=== PATIENT | female | born 1940 | race Caucasian/White ===

== ENCOUNTER → 2017-02-15 | Outpatient (CLI) | payer OTHER ==
--- NOTE | 2017-02-15 13:44 | MG ---
HISTORY: 6 month follow up left breast carcinoma status post lumpectomy Left breast digital diagnostic mammography with CAD. Comparison: August 26, 2016 FINDINGS: XCCL,CC and MLO projections of the left breast were obtained. Scattered fibroglandular tissue is se en to be present with normal interval evolution of the patient's postsurgical change. No new or dev eloping suspicious architectural distortion, mass or clustered microcalcifications can be observed t o suggest malignancy. Diffuse skin thickening is again noted likely related to previous surgery and /. No pathological lymphadenopathy can be identified. Benign-appearing calcifications are noted. IMPRESSION: NO RADIOGRAPHIC EVIDENCE OF MALIGNANCY. ACR CATEGORY 2 - benign findings. Return to bilateral mammographic imaging in August 2017. Diagnostic CAD was utilized and reviewed. * 0 (ZERO) - ASSESSMENT INCOMPLETE; ADDITIONAL IMAGING IS NEEDED. * 1/1 (ONE) - NEGATIVE. * 2/II (TWO) - BENIGN FINDINGS. * 3/III (THREE) - PROBABLY BENIGN FINDING; SHORT INTERVAL FOLLOW-UP SUGGESTED. * 4/IV (FOUR) - SUSPICIOUS ABNORMALITY; BIOPSY SHOULD BE CONSIDERED. * 5/V (FIVE) - HIGHLY SUSPICIOUS OF MALIGNANCY; BIOPSY SHOULD BE PERFORMED. A NEGATIVE X-RAY REPORT SHOULD NOT DELAY BIOPSY IF A DOMINANT OR CLINICALLY SUSPICIOUS MASS IS PRESENT; 4 TO 8 PERCENT OF CANCERS ARE NOT IDENTIFIED BY X-RAY. A NEG ATIVE REPORT MAY REINFORCE THE CLINICAL IMPRESSION. ADENOSIS AND DENSE BREASTS MAY OBSCURE AN UNDER LYING NEOPLASM. Reported By:
== END ==
LOC: RAD 12:11
PROVIDERS: ATTEND Surgery
DX: Z85.3 Personal history of malignant neoplasm of breast (principal); Z90.12 Acquired absence of left breast and nipple
CPT/HCPCS: 77065

== ENCOUNTER → 2017-04-13 | Day surgery (SDC) | payer OTHER ==
[~2017-04-13] MED LIST: DIPRIVAN VIAL 20 ML ONE; NS 1000 ML 1,000 ML ONE
--- NOTE | 2017-04-13 09:37 | OR.GENERIC ---
Post-Op Note Generic - Post-Op Note Operative Report: Procedure Note April 13, 2017 Pre-Operative Diagnosis: History of colonic polyps. Post-Operative Diagnosis: 1. Sigmoid diverticulosis. 2. Grade I internal hemorrhoids. 3. Poor prep. Procedure: Colonoscopy to cecum. Surgeon: Hao Pollack MD. Home Day Care Provider: Ananya Zavaleta CRNA. Specimens: None. Estimated blood loss: None. Complications: None. Summary: The patient is a 76 year old female who presented for a screening colonoscopy. The risk and benefits of the procedure including difficulty with anesthesia, bleeding, infection, as well as perforation were discussed with the patient. The patient understood these risks and requested the procedure. On April 13, 2017, the patient was brought to the endoscopy suite. A time out was performed verifying the patient and procedure. The patient was placed in a left lateral decubitus position. After satisfactory induction of monitored anesthesia care, a rectal exam was performed. Small external hemorrhoids were noted. Next, an endoscopy was advanced through the anus and directed to the cecum without difficulty. The scope was then withdrawn viewing all mucosal surfaces. The patients prep was poor. Liquid and solid stool limited visualization. The cecum, ascending, transverse, as well as descending portions of the colon were normal. Specifically, there were no masses, polyps, or diverticula. The scope was withdrawn through the sigmoid portion of the colon. No masses or polyps were seen. However, few diverticula were seen. There was no evidence of diverticulitis. The scope was withdrawn into the rectum and retroflexed. Grade I internal hemorrhoids were noted. The scope was straightened and insufflation evacuated. The scope was withdrawn and the procedure terminated. The patient was taken to the recovery room in stable condition. There were no complications.
[2017-04-13 09:57] VITALS: BP 151/74
== END ==
LOC: SURG1 07:00
PROVIDERS: ATTEND Student in an Organized Health Care Education/Training Program
PROC: 0DJD8ZZ Inspection of Lower Intestinal Tract, Via Natural or Artificial Opening Endoscopic (ICD-10-PCS; principal; 2017-04-13 08:30)
DX: Z12.11 Encounter for screening for malignant neoplasm of colon (principal); Z86.010 Personal history of colon polyps; K57.30 Diverticulosis of large intestine without perforation or abscess without bleeding; K64.0 First degree hemorrhoids
CPT/HCPCS: 99100; A4217; J3490

== ENCOUNTER → 2017-09-01 | Outpatient (CLI) | payer OTHER ==
[2017-04-13 09:57] VITALS: BP 151/74
--- NOTE | 2017-09-01 12:10 | MG ---
HISTORY: Six-month follow-up left breast carcinoma Bilateral digital diagnostic mammography with CAD. Comparison: Multiple previous exams dating back to July 17, 2013 FINDINGS: Bilateral CC and MLO projections of the right and left breast were obtained. Scattered fibroglandula r tissue is seen to be present without suspicious interval change and with stable postsurgical change s on the left. No new or developing architectural distortion, mass or clustered microcalcifications can be observed to suggest malignancy. No skin thickening or nipple retraction is appreciated. No pathological lymphadenopathy can be identified. Benign-appearing calcifications are noted within the right and left breast. IMPRESSION: NO RADIOGRAPHIC EVIDENCE OF MALIGNANCY. ACR CATEGORY 2 - benign findings. FOLLOW-UP EXAM 1 YEAR. Diagnostic CAD was utilized and reviewed. * 0 (ZERO) - ASSESSMENT INCOMPLETE; ADDITIONAL IMAGING IS NEEDED. * 1/1 (ONE) - NEGATIVE. * 2/II (TWO) - BENIGN FINDINGS. * 3/III (THREE) - PROBABLY BENIGN FINDING; SHORT INTERVAL FOLLOW-UP SUGGESTED. * 4/IV (FOUR) - SUSPICIOUS ABNORMALITY; BIOPSY SHOULD BE CONSIDERED. * 5/V - HIGHLY SUSPICIOUS OF MALIGNANCY; BIOPSY SHOULD BE PERFORMED. A NEGATIVE X-RAY REPORT SHOULD NOT DELAY BIOPSY IF A DOMINANT OR CLINICALLY SUSPICIOUS MASS IS PRESENT; 4 TO 8 PERCENT OF CANCERS ARE NOT IDENTIFIED BY X-RAY. A NEGA TIVE REPORT MAY REINFORCE THE CLINICAL IMPRESSION. ADENOSIS AND DENSE BREASTS MAY OBSCURE AN UNDERLY ING NEOPLASM. Reported By:
== END ==
LOC: RAD 11:02
PROVIDERS: ATTEND Nurse Practitioner Family
DX: Z85.3 Personal history of malignant neoplasm of breast (principal)
CPT/HCPCS: 77066

== ENCOUNTER 2020-10-19 16:00 | Inpatient (IN) ==
[2020-10-19 16:10] VITALS: BMI 25.8
--- NOTE | 2020-10-19 16:13 | DR.GENAD ---
HPI Time Seen Time Seen by Provider: 10/19/20 16:12 PCP Primary Care Physician: SARAH DENSON HPI Comment HPI Comment: 79 yo f presents w/ abd pain x 3 days. Gradual onset, dull/ aching, suprapubic area, non radiating, waxing/ waning, no relieving/ provoking factors. Had had 50 lb weight loss over the last year, as well a recurrent episodes of n/ v. Recently underwent egd which demonstrated gastritis. + dysuria. No back or flank pain. Denies melena, hematochezia, hematuria, urinary retention, f/c, CP/ SOB. Complaint/Symptoms Chief Complaint:: PT C/O SHARP STABBING MIDDLE ABDOMINAL PAIN INTERMITTENTLY ASSOCIATED WITH NAUSEA AND VOMITTING X 1 WEEK. PT HAD EGD ON 10/15/[address] BAILEY WHICH SHOWED GASTRITIS. Source History Provided: Patient Mode of Arrival Mode of Arrival: Ambulatory Timing Onset of Chief Complaint: 10/19/20 Came on: Gradually Severity Severity: Moderate PMH PMH Past Medical History: Yes Past Medical History: Arthritis, Diabetes, GERD and Hypertension Past Medical History Comment: BREAST CANCER Past Surgical History: Yes Surgical History: Cholecystectomy and Hysterectomy Past Surgical History Comment: RIGHT BREAST LUMPECTOMY, UMBILICAL HERNIA Family History History of Family Medical Conditions: No Social History Does patient currently use any type of tobacco product: No Have you used tobacco products in the last 12 months: No Type of Tobacco Use: None Does any household member use tobacco: No Alcohol Use: None Do you use any recreational Drugs:: No Lives With: Family Lives Where: Home Infectious screening In the last 2 months have you had wt loss of >10#?: NO Have you had fever, night sweats or hemotysis?: No Have you traveled outside the country in the last 6 months?: No Isolation: Standard ROS Review of Systems Constitutional: No Symptoms Reported Eyes: No Symptoms Reported ENTM: No Symptoms Reported Respiratoy: No Symptoms Reported Cardiovascular: No Symptoms Reported Gastrointestinal/Abdominal: Abdominal Pain, Diarrhea, Nausea and Vomiting; negative Constipation Genitourinary: Dysuria; negative Frequency and Hematuria Neurological: No Symptoms Reported Musculoskeletal: No Symptoms Reported Integumentary: No Symptoms Reported Hematologic/Lymphatic: No Symptoms Reported Endocrine: No Symptoms Reported Psychiatric: No Symptoms Reported All Other Systems: Reviewed and Negative PE Vital Signs Vitals: Temperature 37.2 C Pulse Rate 91 Respiratory Rate 20 Blood Pressure 168/70 O2 Sat by Pulse Oximetry 99 General Limitations: No Limitations General Appearance: Alert and In No Apparent Distress Head Head Exam: Normal Inspection Eyes Eye exam: Normal Appearance ENT ENT Exam: Normal Exam External Ear Exam: Normal External Inspection TM/Canal Exam: Bilateral: Normal Nose Exam: Normal Nose Exam Mouth Exam: Normal Inspection Throat Exam: Normal Inspection Neck Neck Exam: Normal Inspection Chest Chest Inspection: Normal Inspection Respiratory Respiratory Exam: Normal Lung Sounds Bilat Respiratory Exam: Bilateral: Clear to Auscultation Cardiovascular Cardiovascular Exam: Regular Rate and Normal Rhythm Abdominal Exam Abdominal Exam: Normal Bowel Sounds, Soft and Tenderness; negative Distention, Guarding, Rebound and Rigidity Abdominal Tenderness: Suprapubic Extremities Extremities Exam: Normal Inspection Back Back Exam: Normal Inspection Neurologic Neurological Exam: Alert and Oriented X3 Psychiatric Psychiatric Exam: Normal Affect and Normal Mood Skin Skin Exam: Warm, Dry, Intact and Normal Color MDM Additional Information Additional Information Obtained From: Family Differential Diagnosis Differential Diagnosis: uti, gastritis, sbo, gastroenteritis COURSE Treatment Treatment: 79 yo f s/p recent egd thurs presents w/ acute suprapubic area abd pain. Prev hx of lower abd wall hernia. Significant recent chronic hx of weight loss and diarrhea. Lab markers fairly unremarkable. UTI on ua, Rocephin given. CT abd demonstrated large abd wall hernia with inflammatory findings concerning for possible early Bowell ischemia. Lactate < 2. No signs of sepsis at this time. Cecal mass also noted onct with what appear to be liver masses raising con cern for a neoplastic process. Discussed with dr ballesteros whom agrees to consult. Discussed with dr orourke whom agrees to admit. Education/Counseling Education/Counseling: Patient and Family Educated On: Treatment, Diagnosis, Prognosis and Needs for Follow Up ROR Labs Reviewed Laboratory Results Reviewed?: Yes Result Diagrams: 10/19/20 16:24 10/19/20 16:24 Laboratory: WBC 9.5 X10^3/uL (3.6-10.0) 10/19/20 16:24 RBC 4.13 X10^6/uL (3.5-5.4) 10/19/20 16:24 Hgb 12.2 g/dL (12.0-16.0) 10/19/20 16:24 Hct 36.4 % (36.0-47.0) 10/19/20 16:24 MCV 88.1 fL (80.0-100.0) 10/19/20 16:24 MCH 29.4 pg (27.0-34.0) 10/19/20 16:24 MCHC 33.4 g/dL (33.0-35.0) 10/19/20 16:24 RDW 12.3 % (11.6-16.5) 10/19/20 16:24 Plt Count 380 X10^3/uL (150.0-450.0) 10/19/20 16:24 MPV 8.2 fL (7.4-11.0) 10/19/20 16:24 Neut % (Auto) 69.6 % (42.0-75.0) 10/19/20 16:24 Lymph % (Auto) 20.7 % (21.0-51.0) L 10/19/20 16:24 [place] % (Auto) 6.9 % (0.0-13.0) 10/19/20 16:24 Eos % (Auto) 2.0 % (0.9-2.9) 10/19/20 16:24 Baso % (Auto) 0.8 % (0.2-1.0) 10/19/20 16:24 Neut # (Auto) 6.6 x10^3/uL (2.2-4.8) H 10/19/20 16:24 Lymph # (Auto) 2.0 X10^3/uL (1.3-2.9) 10/19/20 16:24 [place] # (Auto) 0.7 x10^3/uL (0.3-0.8) 10/19/20 16:24 Eos # (Auto) 0.2 x10^3/uL (0.0-0.2) 10/19/20 16:24 Baso # (Auto) 0.1 X10^3/uL (0.0-0.1) 10/19/20 16:24 Absolute Nucleated RBC 0.1 /100WBC 10/19/20 16:24 Sodium 134 mmol/L (136-145) L 10/19/20 16:24 Corrected Sodium 135 mmol/L (136-145) L 10/19/20 16:24 Potassium 4.1 mmol/L (3.5-5.1) 10/19/20 16:24 Chloride 95 mmol/L (98-107) L 10/19/20 16:24 Carbon Dioxide 28.1 mmol/L (21-32) 10/19/20 16:24 BUN 25 mg/dL (7-18) H 10/19/20 16:24 Creatinine 1.07 mg/dL (0.55-1.02) H 10/19/20 16:24 Est GFR (MDRD) Af Amer > 60 (>60) 10/19/20 16:24 Est GFR (MDRD) Non-Af 53 (>60) L 10/19/20 16:24 Glucose 162 mg/dL (65-99) H 10/19/20 16:24 Lactic Acid 1.3 mmol/L (0.4-2.0) 10/19/20 16:24 Calcium 9.6 mg/dL (8.5-10.1) 10/19/20 16:24 Corrected Calcium 10.2 mg/dL (8.5-10.1) H 10/19/20 16:24 Total Bilirubin 0.40 mg/dL (0.2-1.0) 10/19/20 16:24 AST 22 Units/L (15-37) 10/19/20 16:24 ALT 22 Units/L (12-78) 10/19/20 16:24 Alkaline Phosphatase 81 Units/L (46-116) 10/19/20 16:24 Troponin I < 0.02 ng/mL (0-1.5) 10/19/20 16:24 Total Protein 8.7 g/dL (6.4-8.2) H 10/19/20 16:24 Albumin 3.2 g/dL (3.4-5.0) L 10/19/20 16:24 Globulin 5.5 g/dL (2.5-4.5) H 10/19/20 16:24 Albumin/Globulin Ratio 0.6 Ratio (1.1-2.1) L 10/19/20 16:24 Lipase 96 Units/L (73-393) 10/19/20 16:24 Specimen Type Clean catch urine 10/19/20 19:40 Urine Color Yellow (YELLOW) 10/19/20 19:40 Urine Appearance Clear (CLEAR) 10/19/20 19:40 Urine pH 7.0 (5.0 - 8.0) 10/19/20 19:40 Ur Specific [place] 1.010 (1.000-1.030) 10/19/20 19:40 Urine Protein 1+ (NEGATIVE) 10/19/20 19:40 Urine Glucose (UA) Negative (NEGATIVE) 10/19/20 19:40 Urine Ketones Negative (NEGATIVE) 10/19/20 19:40 Urine Occult Blood 3+ (NEGATIVE) 10/19/20 19:40 Urine Nitrite Negative (NEGATIVE) 10/19/20 19:40 Urine Bilirubin Negative (NEGATIVE) 10/19/20 19:40 Urine Urobilinogen 2+ (NORMAL) 10/19/20 19:40 Ur Leukocyte Esterase 2+ (NEGATIVE) 10/19/20 19:40 Urine RBC 10-20 /HPF (0-3) A 10/19/20 19:40 Urine WBC 5-10 /HPF (0-5) A 10/19/20 19:40 Ur Squamous Epith Cells Few /HPF (NEGATIVE) 10/19/20 19:40 Urine Bacteria 1+ /HPF (NEGATIVE) 10/19/20 19:40 Ur Culture Indicated? No/not indicated 10/19/20 19:40 SARS CoV-2 RNA Rapid SUSANA Negative (NEGATIVE) 10/19/20 20:30 XRAY XRAY Interpreted by: Radiologist X-ray Results: chest x ray: no acute processes. ct abd/ pelvis: abd wall hernia w/ inflammatory findings early ischemia vs infection, cecal mass, hypoattenuating liver masses. EKG Rate: 96 [place]: Normal Rhythm: NSR Block: None Hypertrophy: None ST: Normal Opioid Opioid Risk Tool Age (Quique box if 16-45): No History of Preadolescent Sexual Abuse: No Total: 0 Total Score Risk Category: Low Risk Copyright: Wilbur VAZQUEZ predicting aberrant behaviors Diagnosis Discharge Problem: Colitis, Abdominal wall hernia, Colonic mass, Lesion of liver UTI (urinary tract infection) Qualifiers: Urinary tract infection type: acute cystitis Hematuria presence: without hematuria Qualified Code(s): N30.00 - Acute cystitis without hematuria Instructions Forms: Patient Portal Social Distancing
[2020-10-19] MEDS ORDERED: NS 1000 ML 1,000 ML IV ONE (16:17)
[2020-10-19] MEDS ORDERED: ZOFRAN INJ 4 MG VIAL IVP ONE (16:17)
[2020-10-19] MEDS ORDERED: NS 1000 ML 1,000 ML ONE ×2 (16:19→20:37)
[2020-10-19] MEDS ORDERED: ZOFRAN INJ 4 MG VIAL ONE (16:19)
[2020-10-19 16:49] LABS: BASOPHILS # (AUTO) 0.1 X10^3/uL (0.0-0.1); BASOPHILS % (AUTO) 0.8 % (0.2-1.0); EOSINOPHILS # (AUTO) 0.2 x10^3/uL (0.0-0.2); HEMATOCRIT 36.4 % (36.0-47.0); HEMOGLOBIN 12.2 g/dL (12.0-16.0); LYMPHOCYTES % (AUTO) 20.7 % (21.0-51.0); MEAN CORPUSCULAR HEMOGLOBIN 29.4 pg (27.0-34.0); MEAN CORPUSCULAR HGB CONC 33.4 g/dL (33.0-35.0); MEAN CORPUSCULAR VOLUME 88.1 fL (80.0-100.0); MEAN PLATELET VOLUME 8.2 fL (7.4-11.0); MONOCYTES # (AUTO) 0.7 x10^3/uL (0.3-0.8); MONOCYTES % (AUTO) 6.9 % (0.0-13.0); NEUTROPHILS # (AUTO) 6.6 x10^3/uL (2.2-4.8); NEUTROPHILS % (AUTO) 69.6 % (42.0-75.0); PLATELET COUNT 380 X10^3/uL (150.0-450.0); RED BLOOD COUNT 4.13 X10^6/uL (3.5-5.4); RED CELL DISTRIBUTION WIDTH 12.3 % (11.6-16.5); WHITE BLOOD COUNT 9.5 X10^3/uL (3.6-10.0)
[2020-10-19 16:55] LABS: LACTIC ACID 1.3 mmol/L (0.4-2.0)
[2020-10-19 16:59] LABS: ALANINE AMINOTRANSFERASE 22 Units/L (12-78); ALBUMIN 3.2 g/dL (3.4-5.0); ALKALINE PHOSPHATASE 81 Units/L (46-116); ASPARTATE AMINO TRANSFERASE 22 Units/L (15-37); BLOOD UREA NITROGEN 25 mg/dL (7-18); CALCIUM 9.6 mg/dL (8.5-10.1); CARBON DIOXIDE 28.1 mmol/L (21-32); CHLORIDE 95 mmol/L (98-107); COR CA(FOR HYPOALB) 10.2 mg/dL (8.5-10.1); COR NA(FOR HYPERGLY) 135 mmol/L (136-145); CREATININE 1.07 mg/dL (0.55-1.02); SODIUM 134 mmol/L (136-145); TOTAL PROTEIN 8.7 g/dL (6.4-8.2); TROPONIN I < 0.02 ng/mL (0-1.5); eGFR NON BLACK RACES 53 (>60)
[2020-10-19] MEDS ORDERED: NS 100 ML IV 100 ML IV ONE (18:31)
--- NOTE | 2020-10-19 19:45 | CT ---
HISTORYABD PAIN S/P EGD ON 10/15/20, GASTRITISSTUDYABDOMEN/PELVIS WITH CONCOMPARISONDecember 2019TECHNIQUEAxial CT images of the abdomen and pelvis were obtained after the administration of IV contrast and reformatted into coronal and sagittal planes for further evaluation. Enteric contrast was also administered.Radiation dose: 612.20 mGy-cm total DLPFINDINGSLung bases are clear.Fat containing supraumbilical midline hernia without inflammatory changes.Stomach appears normal.Low-attenuation heterogeneous foci scattered throughout the liver parenchyma measuring up to 2.7 cm in with on axial image 16.Atherosclerotic changes to the abdominal aorta without aneurysm.Spleen, pancreas and adrenal glands unremarkable.Gallbladder appears normal with no biliary dilatation.10 x 6 mm calculus in the left renal pelvis; not resulting in obstruction.Otherwise, unremarkable appearance of the kidneys and ureters.Unremarkable appearance of the urinary bladder.Status post hysterectomy.Colonic diverticulosis without diverticulitis.Anterior lower abdominal wall hernia containing a loop of mildly distended bowel with mild small bowel wall thickening as well as edema in the socially aided mesentery.Cecal wall thickening at the ileocecal valve; ill-defined.No evidence of acute appendicitis.No pneumoperitoneum.No significant fluid collection.No adenopathy.No acute osseous abnormality.Moderate degenerative disc disease at L2-L3.Otherwise, mild degenerative disc disease in the remainder of the thoracolumbar spine without vertebral body height loss.IMPRESSION1. Lower abdominal wall hernia containing a loop of dilated small bowel. There is small bowel dilatation proceeding the hernia as well as distal to the hernia extending to the ileocecal valve. Small bowel wall thickening involving the bowel loop within the hernia as well as the intra-abdominal portion to the ileocecal valve. Edema in the mesentery leading to the small bowel with the wall thickening. Findings could represent infectious, inflammatory or ischemic enteritis.2. Additionally, there is ill-defined thickening of the cecal wall which is concerning for a malignancy given the numerous low-attenuation foci in the liver that are most consistent with metastatic disease.3. Colonic diverticulosis without diverticulitis.4. 10 x 6 mm calculus in the left renal pelvis not resulting in obstruction.5. Fat containing midline supraumbilical hernia without inflammatory changes.Electronically signed by: Jim Motta (Oct 19, 2020 19:43:47)
[2020-10-19 19:49] LABS: BILIRUBIN,URINE NEGATIVE (NEGATIVE); BLOOD/HEMOGLOBIN,URINE 3+ (NEGATIVE); GLUCOSE, URINE NEGATIVE (NEGATIVE); KETONES,URINE NEGATIVE (NEGATIVE); LEUKOCYTE ESTERASE ,URINE 2+ (NEGATIVE); NITRITES,URINE NEGATIVE (NEGATIVE); PROTEIN,URINE 1+ (NEGATIVE); UROBILINOGEN,URINE 2+ (NORMAL)
[2020-10-19 19:50] LABS: APPEARANCE,URINE CLEAR (CLEAR); COLOR,URINE YELLOW (YELLOW)
[2020-10-19 19:57] LABS: BACTERIA,URINE 1+ /HPF (NEGATIVE); SQUAMOUS EPITHELIAL CELL,UR FEW /HPF (NEGATIVE)
--- NOTE | 2020-10-19 20:02 | RAD ---
PROCEDURE: Chest X-ray 1 View .HISTORY: Abdomen pain with nausea and vomiting for 1 week.TECHNIQUE: AP portable view done at 4:19 p.m..COMPARISON: 07/17/2020.TECHNICAL QUALITY: Satisfactory .FINDINGS:Normal size heart .Mediastinum and hilar regions show no masses or lymphadenopathy .Normal central vascularity .No pulmonary consolidation, masses, pleural fluid, or pneumothorax .No acute bony abnormality .Metallic band projected over the lower neck in the midline suspected to be outside the patient.IMPRESSION:No active cardiopulmonary disease .Electronically signed by: Bright Huitron (Oct 19, 2020 20:01:08)
[2020-10-19] MEDS ORDERED: ROCEPHIN 1 GRAM IV PREMIX 1 G/50 ML IV.SOLN. IV ONE ×2 (20:31→20:36)
[2020-10-19] MEDS: ROCEPHIN 1 GRAM IV PREMIX 1 G/50 ML IV.SOLN. IV SCH (21:07)
[2020-10-19] MEDS: D5 LR 1000 ML 1,000 ML IV SCH (22:06)
[2020-10-19] MEDS: RESTORIL CAP 15 MG PO PRN (23:44)
[2020-10-20] MEDS: D5 LR 1000 ML 1,000 ML IV SCH ×3 (05:30→22:52)
[2020-10-20 06:19] LABS: BASOPHILS % (AUTO) 0.6 % (0.2-1.0); EOSINOPHILS # (AUTO) 0.2 x10^3/uL (0.0-0.2); EOSINOPHILS % (AUTO) 2.9 % (0.9-2.9); HEMATOCRIT 30.1 % (36.0-47.0); HEMOGLOBIN 10.2 g/dL (12.0-16.0); LYMPHOCYTES # (AUTO) 2.4 X10^3/uL (1.3-2.9); LYMPHOCYTES % (AUTO) 32.8 % (21.0-51.0); MEAN CORPUSCULAR HEMOGLOBIN 29.6 pg (27.0-34.0); MEAN CORPUSCULAR HGB CONC 33.9 g/dL (33.0-35.0); MEAN CORPUSCULAR VOLUME 87.3 fL (80.0-100.0); MEAN PLATELET VOLUME 7.7 fL (7.4-11.0); MONOCYTES # (AUTO) 0.6 x10^3/uL (0.3-0.8); MONOCYTES % (AUTO) 7.7 % (0.0-13.0); NEUTROPHILS # (AUTO) 4.1 x10^3/uL (2.2-4.8); PLATELET COUNT 337 X10^3/uL (150.0-450.0); RED BLOOD COUNT 3.45 X10^6/uL (3.5-5.4); RED CELL DISTRIBUTION WIDTH 12.2 % (11.6-16.5); WHITE BLOOD COUNT 7.4 X10^3/uL (3.6-10.0)
[2020-10-20 06:35] LABS: ALANINE AMINOTRANSFERASE 18 Units/L (12-78); ALBUMIN 2.5 g/dL (3.4-5.0); ALKALINE PHOSPHATASE 67 Units/L (46-116); ASPARTATE AMINO TRANSFERASE 17 Units/L (15-37); BLOOD UREA NITROGEN 17 mg/dL (7-18); CALCIUM 8.7 mg/dL (8.5-10.1); CARBON DIOXIDE 29.2 mmol/L (21-32); CHLORIDE 100 mmol/L (98-107); COR CA(FOR HYPOALB) 9.9 mg/dL (8.5-10.1); COR NA(FOR HYPERGLY) 138 mmol/L (136-145); CREATININE 0.94 mg/dL (0.55-1.02); SODIUM 137 mmol/L (136-145); eGFR NON BLACK RACES > 60 (>60)
--- NOTE | 2020-10-20 08:40 | DR.PROGNOT ---
Hospital Progress Notes - Progress Note for Day of: Progress Note Date: 10/20/20 - Chief Complaint Chief Complaint: noderate RLQ pain . no nausea or vomiting . Hgb 10.2. LFT normal .. BS 145. - Past Medical Family Social History Past Med/Fam/Surg Hx: No changes since H&P Allergies: Allergies No Known Drug Allergies Allergy (Verified 04/13/17 07:10) - Review Of Systems ROS: No change since H&P - Vital Signs Vital Signs: Temperature 97.6 F Pulse Rate [Left Radial] 73 Pulse Rate 91 Respiratory Rate 18 Blood Pressure [Left Arm] 159/69 Blood Pressure 168/70 O2 Sat by Pulse Oximetry 99 - Physical Exam Oriented: Normal Eyes: Normal Ear: Normal Nose: Normal Respiratory: Normal Cardiovascular: Normal : Normal GI:Auscultation: Normal GI:Palpation: Other (incarcerated incisional hernia RLQ ( from previous hysterectomy incision )) GI: Tenderness: RLQ (soft , flat abdomen with recurrent umbilical hernia ( fat containing ) and incarcerated RLQ hernia ) Speech Pattern: Clear, Appropriate - Laboratory and Diagnostics Result Diagrams: 10/20/20 06:07 10/20/20 06:07 Labs: Laboratory WBC 7.4 X10^3/uL (3.6-10.0) 10/20/20 06:07 RBC 3.45 X10^6/uL (3.5-5.4) L 10/20/20 06:07 Hgb 10.2 g/dL (12.0-16.0) L D 10/20/20 06:07 Hct 30.1 % (36.0-47.0) L 10/20/20 06:07 MCV 87.3 fL (80.0-100.0) 10/20/20 06:07 MCH 29.6 pg (27.0-34.0) 10/20/20 06:07 MCHC 33.9 g/dL (33.0-35.0) 10/20/20 06:07 RDW 12.2 % (11.6-16.5) 10/20/20 06:07 Plt Count 337 X10^3/uL (150.0-450.0) 10/20/20 06:07 MPV 7.7 fL (7.4-11.0) 10/20/20 06:07 Neut % (Auto) 56.0 % (42.0-75.0) 10/20/20 06:07 Lymph % (Auto) 32.8 % (21.0-51.0) 10/20/20 06:07 [place] % (Auto) 7.7 % (0.0-13.0) 10/20/20 06:07 Eos % (Auto) 2.9 % (0.9-2.9) 10/20/20 06:07 Baso % (Auto) 0.6 % (0.2-1.0) 10/20/20 06:07 Neut # (Auto) 4.1 x10^3/uL (2.2-4.8) 10/20/20 06:07 Lymph # (Auto) 2.4 X10^3/uL (1.3-2.9) 10/20/20 06:07 [place] # (Auto) 0.6 x10^3/uL (0.3-0.8) 10/20/20 06:07 Eos # (Auto) 0.2 x10^3/uL (0.0-0.2) 10/20/20 06:07 Baso # (Auto) 0.0 X10^3/uL (0.0-0.1) 10/20/20 06:07 Absolute Nucleated RBC 0.1 /100WBC 10/20/20 06:07 Sodium 137 mmol/L (136-145) 10/20/20 06:07 Corrected Sodium 138 mmol/L (136-145) 10/20/20 06:07 Potassium 4.0 mmol/L (3.5-5.1) 10/20/20 06:07 Chloride 100 mmol/L (98-107) 10/20/20 06:07 Carbon Dioxide 29.2 mmol/L (21-32) 10/20/20 06:07 BUN 17 mg/dL (7-18) 10/20/20 06:07 Creatinine 0.94 mg/dL (0.55-1.02) 10/20/20 06:07 Est GFR (MDRD) Af Amer > 60 (>60) 10/20/20 06:07 Est GFR (MDRD) Non-Af > 60 (>60) 10/20/20 06:07 Glucose 145 mg/dL (65-99) H 10/20/20 06:07 POC Glucose (mg/dL) 147 mg/dL (65-99) H 10/20/20 05:10 Lactic Acid 1.3 mmol/L (0.4-2.0) 10/19/20 16:24 Calcium 8.7 mg/dL (8.5-10.1) 10/20/20 06:07 Corrected Calcium 9.9 mg/dL (8.5-10.1) 10/20/20 06:07 Total Bilirubin 0.30 mg/dL (0.2-1.0) 10/20/20 06:07 AST 17 Units/L (15-37) 10/20/20 06:07 ALT 18 Units/L (12-78) 10/20/20 06:07 Alkaline Phosphatase 67 Units/L (46-116) 10/20/20 06:07 Troponin I < 0.02 ng/mL (0-1.5) 10/19/20 16:24 Total Protein 7.0 g/dL (6.4-8.2) 10/20/20 06:07 Albumin 2.5 g/dL (3.4-5.0) L 10/20/20 06:07 Globulin 4.5 g/dL (2.5-4.5) 10/20/20 06:07 Albumin/Globulin Ratio 0.6 Ratio (1.1-2.1) L 10/20/20 06:07 Lipase 96 Units/L (73-393) 10/19/20 16:24 Specimen Type Clean catch urine 10/19/20 19:40 Urine Color Yellow (YELLOW) 10/19/20 19:40 Urine Appearance Clear (CLEAR) 10/19/20 19:40 Urine pH 7.0 (5.0 - 8.0) 10/19/20 19:40 Ur Specific [place] 1.010 (1.000-1.030) 10/19/20 19:40 Urine Protein 1+ (NEGATIVE) 10/19/20 19:40 Urine Glucose (UA) Negative (NEGATIVE) 10/19/20 19:40 Urine Ketones Negative (NEGATIVE) 10/19/20 19:40 Urine Occult Blood 3+ (NEGATIVE) 10/19/20 19:40 Urine Nitrite Negative (NEGATIVE) 10/19/20 19:40 Urine Bilirubin Negative (NEGATIVE) 10/19/20 19:40 Urine Urobilinogen 2+ (NORMAL) 10/19/20 19:40 Ur Leukocyte Esterase 2+ (NEGATIVE) 10/19/20 19:40 Urine RBC 10-20 /HPF (0-3) A 10/19/20 19:40 Urine WBC 5-10 /HPF (0-5) A 10/19/20 19:40 Ur Squamous Epith Cells Few /HPF (NEGATIVE) 10/19/20 19:40 Urine Bacteria 1+ /HPF (NEGATIVE) 10/19/20 19:40 Ur Culture Indicated? No/not indicated 10/19/20 19:40 SARS CoV-2 RNA Rapid SUSANA Negative (NEGATIVE) 10/19/20 20:30 - Assessment and Plan 1: incarcerated incisional hernia RLQ ( partial SBO ) . recurrent umbilical hernia ( fat containing ). possible liver mets ( cecal abnormality and h/o breast ca ) . to repeat abdominal xray , CEA . may have clear liquid . - Problem Patient Problems: Patient Problems Colitis (Acute) K52.9 Abdominal wall hernia (Acute) K43.9 UTI (urinary tract infection) (Acute) N39.0 Colonic mass (Acute) K63.89 Lesion of liver (Acute) K76.9
[2020-10-20] MEDS: ROCEPHIN 1 GRAM IV PREMIX 1 G/50 ML IV.SOLN. IV SCH (09:03)
--- NOTE | 2020-10-20 10:38 | RAD ---
HISTORYBOWEL OBSTRUCTION HTN, BREAST CA, THYROID, HYSTER, HERNIA, LT BREAST LUMPECTOMYSTUDYKUBCOMPARISON: ABDOMINAL CT DONE OCTOBER 19, 2020.FINDINGSThe rectum is obscured by urinary contrast. There is a moderate amount of retained contrast within the nondilated large bowel. Multiple diverticuli are present.IMPRESSIONNo evidence of obstruction with diverticulosis. Rectum is obscured by urinary contrast.Electronically signed by: SHWETA JOHNSON (Oct 20, 2020 10:37:45)
--- NOTE | 2020-10-20 13:34 | DR.H&P ---
H&P - History & Physical for Day of: H&P Date: 10/19/20 - Chief Complaint Chief Complaint: ABDOMINAL PAIN, N/V - History of Present Illness History of Present Illness: 79 yo f presents w/ abd pain x 3 days. Gradual onset, dull/ aching, suprapubic area, non radiating, waxing/ waning, no relieving/ provoking factors. Had had 50 lb weight loss over the last year, as well a recurrent episodes of n/v. Recently underwent egd which demonstrated g astritis. + dysuria. No back or flank pain. Pt had lap laura in July. Pt denies any fever, ccc or known covid exposure - Past Medical History Past Medical History: Hypertension, Diabetes, GERD, Arthritis - Past Surgical History Surgical History: Cholecystectomy, Hysterectomy, Other - Social History Does patient currently use any type of tobacco product: No Have you used tobacco products in the last 12 months: No Type of Tobacco Use: None Does any household member use tobacco: No Alcohol Use: None Drug Use: None - Medications Home Medications: No Known Drug Allergies Allergy (Verified 04/13/17 07:10) - Review of Systems Constitutional: Weakness Eyes: No Symptoms Reported ENT: No Symptoms Reported Respiratory: No Symptoms Reported Cardiovascular: No Symptoms Reported Gastrointestinal: Nausea, Vomiting, Abdominal Pain, Diarrhea Genitourinary: No Symptoms Reported Musculoskeletal: No Symptoms Reported Neurological: Weakness - Physical Exam Vital Signs: Temperature 97.7 F Pulse Rate [Left Radial] 71 Pulse Rate 91 Respiratory Rate 18 Blood Pressure [Left Arm] 149/93 Blood Pressure 168/70 O2 Sat by Pulse Oximetry 98 Oriented: Normal Eyes: Normal Ear: Normal Nose: Normal Throat: Dry Respiratory: RLL Diminished, LLL Diminished Cardiovascular: Normal : Normal Auscultation: Bowel Sounds: Normal Palpation: Other (umbilical hernia, reducible and incisional hernia rlq) Skin: Decreased [place] Musculoskeletal: Normal Psychiatric: Normal Mood Description: Calm Speech Pattern: Clear, Appropriate - Assessment/Plan (1) Abdominal wall hernia Status: Acute Plan: NPO, SURGICAL CONSULT, GENTLE IV HYDRATION. I&OS, BP CONTROL. COVID - ON ADMISSION. PAIN AND NAUSEA CONTROL. VERIFY HOME MEDICATION, ROUTINE EKG (2) Unexplained weight loss Status: Acute (3) UTI (urinary tract infection) Qualifiers: Urinary tract infection type: acute cystitis Hematuria presence: without hematuria Qualified Code(s): N30.00 - Acute cystitis without hematuria Status: Acute (4) Colonic mass Status: Acute (5) Lesion of liver Status: Acute - Allergies Allergies/Adverse Reactions: Allergies Allergy/AdvReac Type Severity Reaction Status Date / Time No Known Drug Allergies Allergy Verified 04/13/17 07:10
[2020-10-20] MEDS: LOVENOX INJ 40 MG SYR SC SCH (15:54)
[2020-10-20] MEDS: RESTORIL CAP 15 MG PO PRN (20:43)
[2020-10-20] MEDS: PROTONIX INJ 40 MG VIAL IVP SCH (20:43)
[2020-10-20 21:43] LABS: CRYPTOSPORIDIUM PARVUM ANTIGEN NEGATIVE (NEGATIVE); GIARDIA LAMBLIA ANTIGEN NEGATIVE (NEGATIVE)
[2020-10-21] MEDS: D5 LR 1000 ML 1,000 ML IV SCH ×4 (06:35→20:59)
[2020-10-21] MEDS ORDERED: NS 100 ML IV 100 ML IV ONE (09:28)
[2020-10-21] MEDS: PROTONIX INJ 40 MG VIAL IVP SCH ×2 (09:41→20:59)
[2020-10-21] MEDS: ROCEPHIN 1 GRAM IV PREMIX 1 G/50 ML IV.SOLN. IV SCH (09:41)
[2020-10-21] MEDS: LOVENOX INJ 40 MG SYR SC SCH (09:42)
[2020-10-21 09:57] LABS: BASOPHILS % (AUTO) 0.7 % (0.2-1.0); EOSINOPHILS # (AUTO) 0.3 x10^3/uL (0.0-0.2); EOSINOPHILS % (AUTO) 4.2 % (0.9-2.9); HEMATOCRIT 30.6 % (36.0-47.0); HEMOGLOBIN 10.4 g/dL (12.0-16.0); LYMPHOCYTES # (AUTO) 1.8 X10^3/uL (1.3-2.9); LYMPHOCYTES % (AUTO) 25.4 % (21.0-51.0); MEAN CORPUSCULAR HEMOGLOBIN 29.9 pg (27.0-34.0); MEAN CORPUSCULAR HGB CONC 33.9 g/dL (33.0-35.0); MEAN CORPUSCULAR VOLUME 88.2 fL (80.0-100.0); MEAN PLATELET VOLUME 7.8 fL (7.4-11.0); MONOCYTES # (AUTO) 0.5 x10^3/uL (0.3-0.8); MONOCYTES % (AUTO) 7.8 % (0.0-13.0); NEUTROPHILS # (AUTO) 4.3 x10^3/uL (2.2-4.8); NEUTROPHILS % (AUTO) 61.9 % (42.0-75.0); PLATELET COUNT 340 X10^3/uL (150.0-450.0); RED BLOOD COUNT 3.48 X10^6/uL (3.5-5.4); RED CELL DISTRIBUTION WIDTH 12.1 % (11.6-16.5)
[2020-10-21 10:08] LABS: ALANINE AMINOTRANSFERASE 18 Units/L (12-78); ALBUMIN 2.7 g/dL (3.4-5.0); ALKALINE PHOSPHATASE 68 Units/L (46-116); ASPARTATE AMINO TRANSFERASE 17 Units/L (15-37); BLOOD UREA NITROGEN 8 mg/dL (7-18); CALCIUM 8.9 mg/dL (8.5-10.1); CARBON DIOXIDE 32.4 mmol/L (21-32); CHLORIDE 100 mmol/L (98-107); COR CA(FOR HYPOALB) 9.9 mg/dL (8.5-10.1); COR NA(FOR HYPERGLY) 139 mmol/L (136-145); CREATININE 0.82 mg/dL (0.55-1.02); SODIUM 138 mmol/L (136-145); TOTAL PROTEIN 7.3 g/dL (6.4-8.2); eGFR NON BLACK RACES > 60 (>60)
[2020-10-21 10:12] LABS: LACTIC ACID 1.4 mmol/L (0.4-2.0)
--- NOTE | 2020-10-21 10:21 | CT ---
HISTORYBreast cancer with right lumpectomySTUDYCT chest with IV contrastCOMPARISONChest x-ray 10/19/2020TECHNIQUEMultiple axial images of the chest were obtained from the thoracic inlet to the upper abdomenwith the administration of IV contrast. 75 cc Omnipaque 350 IV contrast. Sagittal and coronal reformations are performed. Dose reduction techniques including Automated Exposure Control (AEC) and adjustment of mA and kV were utilized.FINDINGSLungs appear clear. No pneumothorax or pleural effusion. Left lobe of the thyroid gland is enlarged and both lobes have heterogeneous nodules. Thyroid malignancy is not excluded. Correlation with thyroid ultrasound is recommended. There are multiple small mediastinal lymph nodes. These measure less than 1.0 cm in the short axis.The heart and thoracic aorta are normal in size. Liver lesions are seen as described on recent CT abdomen and pelvis report. Nonobstructing stone is seen in the left renal pelvis. Probable benign left renal cyst is seen. No axillary lymphadenopathy is seen. Tiny amount of venous air is seen associated with IV contrast injection.IMPRESSIONEnlarged thyroid gland with nodules is concerning for possible thyroid malignancy. Correlation with ultrasound is recommended.Multiple small mediastinal lymph nodes are seen without evidence of pathologically enlarged lymph node.Electronically signed by: Hesham Palafox (Oct 21, 2020 10:18:58)
[2020-10-21] MEDS ORDERED: COLACE CAP 100 MG PO ONE (12:00)
[2020-10-21] MEDS ORDERED: MIRALAX POWDER (255 GRAMS BTL) PO ONE (14:25)
[2020-10-21] MEDS ORDERED: DULCOLAX TAB EC 5 MG PO ONE (14:25)
[2020-10-21] MEDS: MIRALAX POWDER (255 GRAMS BTL) PO SCH (14:27)
[2020-10-21] MEDS: DULCOLAX TAB EC 5 MG PO SCH ×3 (14:28→20:59)
[2020-10-21 15:28] LABS: FREE T4 (FREE THYROXINE) 1.3 ng/dL (0.76-1.46); TSH (3RD GENERATION) 1.374 uIU/mL (0.358-3.74)
--- NOTE | 2020-10-21 16:24 | DR.PROGNOT ---
Hospital Progress Notes - Progress Note for Day of: Progress Note Date: 10/21/20 - Chief Complaint Chief Complaint: noderate RLQ pain . no nausea or vomiting . abdominal Xray : no bowel obstruction . Hgb 10.2. LFT normal .. BS 145. temp 89.3 - Past Medical Family Social History Past Med/Fam/Surg Hx: No changes since H&P Allergies: Allergies No Known Drug Allergies Allergy (Verified 04/13/17 07:10) - Review Of Systems ROS: No change since H&P - Vital Signs Vital Signs: Temperature 98.0 F Pulse Rate [Left Radial] 76 Pulse Rate 91 Respiratory Rate 20 Blood Pressure [Left Arm] 148/66 Blood Pressure 168/70 O2 Sat by Pulse Oximetry 99 - Physical Exam Oriented: Normal Eyes: Normal Ear: Normal Nose: Normal Throat: Dry Respiratory: Normal Cardiovascular: Normal : Normal GI:Auscultation: Normal GI:Palpation: Other (soft fat containing umbilical hernia .. RLQ incarcerated incisional hernia without obstruction .. BS+) GI: Tenderness: RLQ (soft , flat abdomen with recurrent umbilical hernia ( fat containing ) and incarcerated RLQ hernia ) Skin: Decreased [place] Musculoskeletal: Normal Psychiatric: Normal Mood Description: Calm Speech Pattern: Clear, Appropriate - Laboratory and Diagnostics Result Diagrams: 10/21/20 09:42 10/21/20 09:42 Labs: 10/20/20 19:58 Stool - Final Laboratory WBC 7.0 X10^3/uL (3.6-10.0) 10/21/20 09:42 RBC 3.48 X10^6/uL (3.5-5.4) L 10/21/20 09:42 Hgb 10.4 g/dL (12.0-16.0) L 10/21/20 09:42 Hct 30.6 % (36.0-47.0) L 10/21/20 09:42 MCV 88.2 fL (80.0-100.0) 10/21/20 09:42 MCH 29.9 pg (27.0-34.0) 10/21/20 09:42 MCHC 33.9 g/dL (33.0-35.0) 10/21/20 09:42 RDW 12.1 % (11.6-16.5) 10/21/20 09:42 Plt Count 340 X10^3/uL (150.0-450.0) 10/21/20 09:42 MPV 7.8 fL (7.4-11.0) 10/21/20 09:42 Neut % (Auto) 61.9 % (42.0-75.0) 10/21/20 09:42 Lymph % (Auto) 25.4 % (21.0-51.0) 10/21/20 09:42 [place] % (Auto) 7.8 % (0.0-13.0) 10/21/20 09:42 Eos % (Auto) 4.2 % (0.9-2.9) H 10/21/20 09:42 Baso % (Auto) 0.7 % (0.2-1.0) 10/21/20 09:42 Neut # (Auto) 4.3 x10^3/uL (2.2-4.8) 10/21/20 09:42 Lymph # (Auto) 1.8 X10^3/uL (1.3-2.9) 10/21/20 09:42 [place] # (Auto) 0.5 x10^3/uL (0.3-0.8) 10/21/20 09:42 Eos # (Auto) 0.3 x10^3/uL (0.0-0.2) H 10/21/20 09:42 Baso # (Auto) 0.0 X10^3/uL (0.0-0.1) 10/21/20 09:42 Absolute Nucleated RBC 0.1 /100WBC 10/21/20 09:42 Sodium 138 mmol/L (136-145) 10/21/20 09:42 Corrected Sodium 139 mmol/L (136-145) 10/21/20 09:42 Potassium 3.9 mmol/L (3.5-5.1) 10/21/20 09:42 Chloride 100 mmol/L (98-107) 10/21/20 09:42 Carbon Dioxide 32.4 mmol/L (21-32) H 10/21/20 09:42 BUN 8 mg/dL (7-18) 10/21/20 09:42 Creatinine 0.82 mg/dL (0.55-1.02) 10/21/20 09:42 Est GFR (MDRD) Af Amer > 60 (>60) 10/21/20 09:42 Est GFR (MDRD) Non-Af > 60 (>60) 10/21/20 09:42 Glucose 123 mg/dL (65-99) H 10/21/20 09:42 POC Glucose (mg/dL) 134 mg/dL (65-99) H 10/21/20 15:52 Hemoglobin A1c 6.6 % 10/20/20 06:07 Lactic Acid 1.4 mmol/L (0.4-2.0) 10/21/20 09:42 Calcium 8.9 mg/dL (8.5-10.1) 10/21/20 09:42 Corrected Calcium 9.9 mg/dL (8.5-10.1) 10/21/20 09:42 Total Bilirubin 0.20 mg/dL (0.2-1.0) 10/21/20 09:42 AST 17 Units/L (15-37) 10/21/20 09:42 ALT 18 Units/L (12-78) 10/21/20 09:42 Alkaline Phosphatase 68 Units/L (46-116) 10/21/20 09:42 Troponin I < 0.02 ng/mL (0-1.5) 10/19/20 16:24 Total Protein 7.3 g/dL (6.4-8.2) 10/21/20 09:42 Albumin 2.7 g/dL (3.4-5.0) L 10/21/20 09:42 Globulin 4.6 g/dL (2.5-4.5) H 10/21/20 09:42 Albumin/Globulin Ratio 0.6 Ratio (1.1-2.1) L 10/21/20 09:42 Lipase 96 Units/L (73-393) 10/19/20 16:24 Free T4 1.30 ng/dL (0.76-1.46) 10/21/20 09:42 TSH 3rd Generation 1.374 uIU/mL (0.358-3.74) 10/21/20 09:42 Specimen Type Clean catch urine 10/19/20 19:40 Urine Color Yellow (YELLOW) 10/19/20 19:40 Urine Appearance Clear (CLEAR) 10/19/20 19:40 Urine pH 7.0 (5.0 - 8.0) 10/19/20 19:40 Ur Specific [place] 1.010 (1.000-1.030) 10/19/20 19:40 Urine Protein 1+ (NEGATIVE) 10/19/20 19:40 Urine Glucose (UA) Negative (NEGATIVE) 10/19/20 19:40 Urine Ketones Negative (NEGATIVE) 10/19/20 19:40 Urine Occult Blood 3+ (NEGATIVE) 10/19/20 19:40 Urine Nitrite Negative (NEGATIVE) 10/19/20 19:40 Urine Bilirubin Negative (NEGATIVE) 10/19/20 19:40 Urine Urobilinogen 2+ (NORMAL) 10/19/20 19:40 Ur Leukocyte Esterase 2+ (NEGATIVE) 10/19/20 19:40 Urine RBC 10-20 /HPF (0-3) A 10/19/20 19:40 Urine WBC 5-10 /HPF (0-5) A 10/19/20 19:40 Ur Squamous Epith Cells Few /HPF (NEGATIVE) 10/19/20 19:40 Urine Bacteria 1+ /HPF (NEGATIVE) 10/19/20 19:40 Ur Culture Indicated? No/not indicated 10/19/20 19:40 Stool Description 50 grs brown loose 10/20/20 19:58 Stool Description 50g brown loose 10/20/20 19:58 Stl Occult Blood (IFOB) Positive (NEGATIVE) A 10/20/20 19:58 Stl C. diff Tox B Gene Negative (NEGATIVE) 10/20/20 19:58 Stl C. diff [id number] Presumptive negative (NEGATIVE) 10/20/20 19:58 Stool H. pylori Ag Positive (NEGATIVE) A 10/20/20 19:58 Cryptosporid parvum Ag Negative (NEGATIVE) 10/20/20 19:58 Giardia lamblia Ag Negative (NEGATIVE) 10/20/20 19:58 SARS CoV-2 RNA Rapid SUSANA Negative (NEGATIVE) 10/19/20 20:30 - Assessment and Plan 1: incarcerated incisional hernia RLQ (small bowel loobs ) . recurrent umbilical hernia ( fat containing ). possible liver mets ( cecal abnormality and h/o breast ca ) . for colonscopy in am . - Problem Patient Problems: Patient Problems Colitis (Acute) K52.9 Abdominal wall hernia (Acute) K43.9 UTI (urinary tract infection) (Acute) N39.0 Colonic mass (Acute) K63.89 Lesion of liver (Acute) K76.9 Unexplained weight loss (Acute) R63.4
--- NOTE | 2020-10-21 16:29 | US ---
HISTORYTHYROID MASSSTUDYTHYROID ultrasoundCOMPARISONNoneTECHNIQUEMultiple grayscale and color-flow Doppler images of the thyroid were obtained.FINDINGSRight lobe of the thyroid gland measures 4.3 x 1.9 x 2.2 cm. Left lobe measures 5.2 x 3.1 x 4.9 cm. Thyroid gland is heterogeneous. Complex nodule with solid and cystic components in t he mid right lobe measures 2.3 x 1.1 x 1.5 cm. It has TI rads level 2. Another complex 6 mm cyst is s een in the inferior right lobe.In the left lobe there is a large 1.7 x 1.6 x 1.6 cm solid nodule with out calcifications. It is TI rads level 4 and should be further evaluated with FNA.IMPRESSIONBilatera l thyroid nodules. Complex nodule in the right lobe only has TI rads level 2 and is probably benign.H owever, the 1.7 cm nodule in the left lobe has TI rads level 4 and should be further evaluated with F NA.Electronically signed by: Hesham Palafox (Oct 21, 2020 16:27:27)
[2020-10-21] MEDS ORDERED: FLAGYL IV PREMIX 500 MG BAG 500 MG/100 ML BAG IV ONE (17:07)
[2020-10-21] MEDS: FLAGYL IV PREMIX 500 MG BAG 500 MG/100 ML BAG IV SCH ×2 (17:08→21:00)
[2020-10-21] MEDS: AMOXIL CAP 500 MG PO SCH (20:58)
[2020-10-22] MEDS: D5 LR 1000 ML 1,000 ML IV SCH ×4 (02:35→20:40)
[2020-10-22] MEDS: FLAGYL IV PREMIX 500 MG BAG 500 MG/100 ML BAG IV SCH ×2 (02:35→08:33)
[2020-10-22] MEDS ORDERED: DIPRIVAN VIAL 20 ML ONE ×2 (07:19→07:50)
[2020-10-22] MEDS ORDERED: XYLOCAINE 2 % (PLAIN) ONE (07:19)
[2020-10-22] MEDS ORDERED: NS 1000 ML 1,000 ML ONE (07:23)
--- NOTE | 2020-10-22 08:03 | OR.IMMED ---
Immediate Post-Op Note - Immediate Post-Op Note Pre-Op Diagnosis: mass of the cecum. Post-Op Diagnosis: cecal mass , friable and lobulated . Procedure: colonoscopy to cecum with Bx Surgeon/Communication Specialist: Yosi Specimens Removed: Bxs of cecal mass. Drains: NONE Complications: no Condition: Stable (on clear liquid)
[2020-10-22 08:09] LABS: BASOPHILS # (AUTO) 0.1 X10^3/uL (0.0-0.1); EOSINOPHILS # (AUTO) 0.3 x10^3/uL (0.0-0.2); EOSINOPHILS % (AUTO) 3.4 % (0.9-2.9); HEMATOCRIT 30.7 % (36.0-47.0); HEMOGLOBIN 10.1 g/dL (12.0-16.0); LYMPHOCYTES # (AUTO) 2.1 X10^3/uL (1.3-2.9); MEAN CORPUSCULAR HGB CONC 32.7 g/dL (33.0-35.0); MEAN CORPUSCULAR VOLUME 88.7 fL (80.0-100.0); MEAN PLATELET VOLUME 8.7 fL (7.4-11.0); MONOCYTES # (AUTO) 0.4 x10^3/uL (0.3-0.8); MONOCYTES % (AUTO) 5.5 % (0.0-13.0); NEUTROPHILS # (AUTO) 5.2 x10^3/uL (2.2-4.8); NEUTROPHILS % (AUTO) 64.1 % (42.0-75.0); PLATELET COUNT 326 X10^3/uL (150.0-450.0); RED BLOOD COUNT 3.46 X10^6/uL (3.5-5.4); RED CELL DISTRIBUTION WIDTH 12.1 % (11.6-16.5); WHITE BLOOD COUNT 8.1 X10^3/uL (3.6-10.0)
[2020-10-22 08:25] LABS: ALANINE AMINOTRANSFERASE 17 Units/L (12-78); ALBUMIN 2.6 g/dL (3.4-5.0); ALKALINE PHOSPHATASE 66 Units/L (46-116); ASPARTATE AMINO TRANSFERASE 13 Units/L (15-37); BLOOD UREA NITROGEN 4 mg/dL (7-18); CALCIUM 8.4 mg/dL (8.5-10.1); CHLORIDE 103 mmol/L (98-107); COR CA(FOR HYPOALB) 9.5 mg/dL (8.5-10.1); COR NA(FOR HYPERGLY) 140 mmol/L (136-145); CREATININE 0.87 mg/dL (0.55-1.02); SODIUM 139 mmol/L (136-145); TOTAL PROTEIN 7.1 g/dL (6.4-8.2); eGFR NON BLACK RACES > 60 (>60)
[2020-10-22] MEDS: AMOXIL CAP 500 MG PO SCH ×2 (09:47→20:38)
[2020-10-22] MEDS: PROTONIX INJ 40 MG VIAL IVP SCH ×2 (09:48→20:40)
[2020-10-22] MEDS: LOVENOX INJ 40 MG SYR SC SCH (10:09)
[2020-10-22] MEDS ORDERED: K-RIDER 10 MEQ/NS 100 ML 10 MEQ/100 ML BAG IV PRN (14:15)
[2020-10-22] MEDS ORDERED: MICRO K EXTEN CAP 10 MEQ PO PRN (14:15)
[2020-10-22] MEDS ORDERED: POTASSIUM CHLORIDE LIQ 20 MEQ UDC PO PRN (14:15)
[2020-10-22] MEDS ORDERED: POTASSIUM CHL 40 MEQ/NS 0.45% 500 ML IV PRN (14:15)
[2020-10-22] MEDS ORDERED: KLOR-CON PO PRN (14:15)
[2020-10-22] MEDS ORDERED: POTASSIUM CHL 60 MEQ/NS 0.45% 500 ML IV PRN (14:15)
[2020-10-22] MEDS ORDERED: K-DUR TAB 20 MEQ PO PRN (14:15)
[2020-10-22] MEDS: MIRALAX POWDER (255 GRAMS BTL) PO SCH (14:26)
[2020-10-22] MEDS: MAGNESIUM SULFATE 1 GRAM/100 mL PREMIX 1 GM/100 ML BAG IV PRN ×6 (15:27→23:20)
[2020-10-22] MEDS: FLAGYL TAB 500 MG PO SCH (20:39)
[2020-10-23 04:42] LABS: BASOPHILS # (AUTO) 0.1 X10^3/uL (0.0-0.1); BASOPHILS % (AUTO) 0.7 % (0.2-1.0); EOSINOPHILS # (AUTO) 0.4 x10^3/uL (0.0-0.2); EOSINOPHILS % (AUTO) 5.6 % (0.9-2.9); HEMATOCRIT 30.3 % (36.0-47.0); LYMPHOCYTES # (AUTO) 2.3 X10^3/uL (1.3-2.9); LYMPHOCYTES % (AUTO) 29.9 % (21.0-51.0); MEAN CORPUSCULAR HEMOGLOBIN 29.2 pg (27.0-34.0); MEAN CORPUSCULAR HGB CONC 33.1 g/dL (33.0-35.0); MEAN CORPUSCULAR VOLUME 88.2 fL (80.0-100.0); MEAN PLATELET VOLUME 8.1 fL (7.4-11.0); MONOCYTES # (AUTO) 0.5 x10^3/uL (0.3-0.8); NEUTROPHILS # (AUTO) 4.4 x10^3/uL (2.2-4.8); NEUTROPHILS % (AUTO) 56.8 % (42.0-75.0); PLATELET COUNT 355 X10^3/uL (150.0-450.0); RED BLOOD COUNT 3.43 X10^6/uL (3.5-5.4); RED CELL DISTRIBUTION WIDTH 12.2 % (11.6-16.5); WHITE BLOOD COUNT 7.7 X10^3/uL (3.6-10.0)
[2020-10-23 04:51] LABS: ALANINE AMINOTRANSFERASE 14 Units/L (12-78); ALBUMIN 2.5 g/dL (3.4-5.0); ALKALINE PHOSPHATASE 62 Units/L (46-116); ASPARTATE AMINO TRANSFERASE 13 Units/L (15-37); BLOOD UREA NITROGEN 3 mg/dL (7-18); CALCIUM 8.5 mg/dL (8.5-10.1); CARBON DIOXIDE 27.4 mmol/L (21-32); CHLORIDE 105 mmol/L (98-107); COR CA(FOR HYPOALB) 9.7 mg/dL (8.5-10.1); COR NA(FOR HYPERGLY) 140 mmol/L (136-145); CREATININE 0.91 mg/dL (0.55-1.02); MAGNESIUM 2.3 mg/dL (1.7-2.9); SODIUM 139 mmol/L (136-145); TOTAL PROTEIN 6.9 g/dL (6.4-8.2); eGFR NON BLACK RACES > 60 (>60)
[2020-10-23] MEDS: D5 LR 1000 ML 1,000 ML IV SCH ×2 (05:24→08:30)
[2020-10-23] MEDS: LOVENOX INJ 40 MG SYR SC SCH (08:30)
[2020-10-23] MEDS: AMOXIL CAP 500 MG PO SCH (08:30)
[2020-10-23] MEDS: FLAGYL TAB 500 MG PO SCH (08:31)
[2020-10-23] MEDS: PROTONIX INJ 40 MG VIAL IVP SCH (08:31)
[2020-10-23 12:27] VITALS: BP 182/70
== END 2020-10-23 14:15 | disposition home or self-care (01) | DRG 392 ==
LOC: ER 16:00 → MED/SURG 21:29 → INTOOBSV 21:29 → MED/SURG 21:46
PROVIDERS: ADMIT Internal Medicine; ATTEND Internal Medicine
DX: B96.81 Helicobacter pylori [H. pylori] as the cause of diseases classified elsewhere; K29.00 Acute gastritis without bleeding; N30.00 Acute cystitis without hematuria; R79.89 Other specified abnormal findings of blood chemistry; E11.65 Type 2 diabetes mellitus with hyperglycemia; K92.1 Melena; K63.89 Other specified diseases of intestine; C22.9 Malignant neoplasm of liver, not specified as primary or secondary; R63.4 Abnormal weight loss; K76.9 Liver disease, unspecified; K52.89 Other specified noninfective gastroenteritis and colitis; K43.0 Incisional hernia with obstruction, without gangrene; D64.9 Anemia, unspecified; I10 Essential (primary) hypertension; R26.89 Other abnormalities of gait and mobility; E04.2 Nontoxic multinodular goiter; Z20.822 Contact with and (suspected) exposure to COVID-19; K57.30 Diverticulosis of large intestine without perforation or abscess without bleeding; K64.8 Other hemorrhoids

== ENCOUNTER 2020-11-05 08:34 | Inpatient (IN) ==
[~2020-11-05 08:34] MED LIST changes: -DIPRIVAN VIAL 20 ML ONE; +DIPRIVAN VIAL ONE; +NEO-SYNEPHRINE INJ ONE; -NS 1000 ML 1,000 ML ONE; +SUPRANE ONE; +TORADOL 30 MG VIAL ONE; +VERSED ONE; +XYLOCAINE 2 % (PLAIN) ONE; +ZOFRAN INJ 4 MG VIAL ONE
[2020-11-05] MEDS ORDERED: LR 1000 ML IV 0 ML IV ONE (08:58)
[2020-11-05] MEDS ORDERED: ANCEF 1 GRAM IV PREMIX* 2 G/100 ML BAG IV ONE (08:58)
[2020-11-05] MEDS ORDERED: NS 1000 ML 1,000 ML ONE ×2 (09:00→12:07)
[2020-11-05] MEDS ORDERED: ZEMURON 50 MG VIAL ONE (09:11)
[2020-11-05] MEDS ORDERED: OFIRMEV IV 1000 MG VIAL 1,000 MG/100 ML VIAL IV ONE (09:11)
[2020-11-05] MEDS ORDERED: BRIDION ONE (09:11)
[2020-11-05] MEDS ORDERED: SUPRANE ONE (09:11)
[2020-11-05] MEDS ORDERED: FENTANYL INJ 250 mcg ONE (09:13)
[2020-11-05] MEDS ORDERED: DILAUDID INJ ONE (09:14)
[2020-11-05 09:25] VITALS: BMI 26.6
[2020-11-05] MEDS ORDERED: POLYMYXIN B SULFATE ONE (09:41)
[2020-11-05] MEDS ORDERED: FENTANYL INJ 100 mcg ONE ×2 (10:29→10:56)
[2020-11-05] MEDS ORDERED: NS IRRIGATION* 1,000 ML ONE (10:33)
[2020-11-05] MEDS ORDERED: LEVAQUIN PREMIX IV 500 MG 500 MG/100 ML BAG IV ONE (10:49)
[2020-11-05] MEDS ORDERED: LR 1000 ML IV 1,000 ML IV ONE (10:49)
[2020-11-05 10:55] LABS: BILIRUBIN,URINE NEGATIVE (NEGATIVE); BLOOD/HEMOGLOBIN,URINE NEGATIVE (NEGATIVE); GLUCOSE, URINE NEGATIVE (NEGATIVE); KETONES,URINE 1+ (NEGATIVE); LEUKOCYTE ESTERASE ,URINE 1+ (NEGATIVE); NITRITES,URINE NEGATIVE (NEGATIVE); PROTEIN,URINE 3+ (NEGATIVE); UROBILINOGEN,URINE NORMAL (NORMAL)
[2020-11-05 11:11] LABS: COLOR,URINE YELLOW (YELLOW)
[2020-11-05 11:15] LABS: APPEARANCE,URINE SLIGHTLY HAZY (CLEAR); BACTERIA,URINE TRACE /HPF (NEGATIVE); HYALINE CASTS, URINE FEW /LPF (NEGATIVE); RBC,URINE 0-2 /HPF (0-3); SQUAMOUS EPITHELIAL CELL,UR FEW /HPF (NEGATIVE)
[2020-11-05 11:16] LABS: MUCUS,URINE MANY /HPF (NEGATIVE)
[2020-11-05] MEDS ORDERED: DILAUDID INJ IVP PRN ×2 (12:55→13:29)
[2020-11-05] MEDS ORDERED: BENADRYL INJ 50 MG VIAL IVP PRN (12:55)
[2020-11-05] MEDS ORDERED: PHENERGAN INJ 25 MG IM PRN (12:55)
[2020-11-05] MEDS ORDERED: ZOFRAN INJ 4 MG VIAL IVP PRN (12:55)
[2020-11-05] MEDS ORDERED: REGLAN INJ 10 MG VIAL IVP PRN (12:55)
[2020-11-05] MEDS: ANCEF VIAL 1 GRAM IVP SCH ×2 (15:03→21:19)
[2020-11-05] MEDS: FLAGYL IV PREMIX 500 MG BAG 500 MG/100 ML BAG IV SCH ×2 (15:04→21:20)
[2020-11-05] MEDS: D5 1/2 NS 1000 ML 1,000 ML IV SCH ×3 (16:53→23:48)
[2020-11-05] MEDS: ZOFRAN INJ 4 MG VIAL IVP PRN (16:55)
[2020-11-05] MEDS: PHENERGAN INJ 25 MG IM PRN (19:18)
[2020-11-05] MEDS: MORPHINE SULFATE INJ 4 MG IVP PRN (21:20)
[2020-11-06] MEDS: MORPHINE SULFATE INJ 4 MG IVP PRN ×6 (01:13→20:20)
[2020-11-06 04:25] LABS: BASOPHILS % (AUTO) 0.3 % (0.2-1.0); EOSINOPHILS # (AUTO) 0.1 x10^3/uL (0.0-0.2); EOSINOPHILS % (AUTO) 0.8 % (0.9-2.9); HEMATOCRIT 30.6 % (36.0-47.0); HEMOGLOBIN 9.8 g/dL (12.0-16.0); LYMPHOCYTES # (AUTO) 1.8 X10^3/uL (1.3-2.9); LYMPHOCYTES % (AUTO) 17.8 % (21.0-51.0); MEAN CORPUSCULAR HEMOGLOBIN 28.8 pg (27.0-34.0); MEAN CORPUSCULAR HGB CONC 32.2 g/dL (33.0-35.0); MEAN CORPUSCULAR VOLUME 89.6 fL (80.0-100.0); MONOCYTES # (AUTO) 0.7 x10^3/uL (0.3-0.8); MONOCYTES % (AUTO) 6.6 % (0.0-13.0); NEUTROPHILS # (AUTO) 7.5 x10^3/uL (2.2-4.8); NEUTROPHILS % (AUTO) 74.5 % (42.0-75.0); PLATELET COUNT 410 X10^3/uL (150.0-450.0); RED BLOOD COUNT 3.41 X10^6/uL (3.5-5.4); RED CELL DISTRIBUTION WIDTH 12.1 % (11.6-16.5); WHITE BLOOD COUNT 10.1 X10^3/uL (3.6-10.0)
[2020-11-06 04:31] LABS: ALANINE AMINOTRANSFERASE 13 Units/L (12-78); ALBUMIN 2.2 g/dL (3.4-5.0); ALKALINE PHOSPHATASE 45 Units/L (46-116); ASPARTATE AMINO TRANSFERASE 22 Units/L (15-37); BLOOD UREA NITROGEN 14 mg/dL (7-18); CALCIUM 8.5 mg/dL (8.5-10.1); CARBON DIOXIDE 27.1 mmol/L (21-32); CHLORIDE 101 mmol/L (98-107); COR CA(FOR HYPOALB) 9.9 mg/dL (8.5-10.1); COR NA(FOR HYPERGLY) 137 mmol/L (136-145); CREATININE 0.98 mg/dL (0.55-1.02); SODIUM 135 mmol/L (136-145); TOTAL PROTEIN 6.8 g/dL (6.4-8.2); eGFR NON BLACK RACES 58 (>60)
[2020-11-06] MEDS: FLAGYL IV PREMIX 500 MG BAG 500 MG/100 ML BAG IV SCH ×3 (05:03→22:00)
[2020-11-06] MEDS: ANCEF VIAL 1 GRAM IVP SCH ×3 (05:03→22:00)
[2020-11-06] MEDS: D5 1/2 NS 1000 ML 1,000 ML IV SCH ×5 (05:03→23:21)
[2020-11-06] MEDS: ZOFRAN INJ 4 MG VIAL IVP PRN (07:58)
[2020-11-06] MEDS: PROTONIX INJ 40 MG VIAL IVP SCH (09:53)
--- NOTE | 2020-11-06 13:31 | DR.PROGNOT ---
Hospital Progress Notes - Progress Note for Day of: Progress Note Date: 11/06/20 - Chief Complaint Chief Complaint: doing very with good urine OP . mild drainage in NGT and [place] .. temp 99.1 - Past Medical Family Social History Allergies: Allergies No Known Drug Allergies Allergy (Verified 04/13/17 07:10) - Vital Signs Vital Signs: Temperature 99.1 F Pulse Rate [Left Radial] 98 Pulse Rate 92 Respiratory Rate 20 Blood Pressure [Right Arm] 185/81 Blood Pressure [Left Arm] 182/70 Blood Pressure 120/64 O2 Sat by Pulse Oximetry 97 - Physical Exam GI: Tenderness: Diffuse (soft, flat abdomen with moderte tenderness .. BS hypo active ) Mood Description: Calm Speech Pattern: Clear, Appropriate - Laboratory and Diagnostics Result Diagrams: 11/06/20 04:00 11/06/20 04:00 Labs: Laboratory WBC 10.1 X10^3/uL (3.6-10.0) H 11/06/20 04:00 RBC 3.41 X10^6/uL (3.5-5.4) L 11/06/20 04:00 Hgb 9.8 g/dL (12.0-16.0) L 11/06/20 04:00 Hct 30.6 % (36.0-47.0) L 11/06/20 04:00 MCV 89.6 fL (80.0-100.0) 11/06/20 04:00 MCH 28.8 pg (27.0-34.0) 11/06/20 04:00 MCHC 32.2 g/dL (33.0-35.0) L 11/06/20 04:00 RDW 12.1 % (11.6-16.5) 11/06/20 04:00 Plt Count 410 X10^3/uL (150.0-450.0) 11/06/20 04:00 MPV 8.0 fL (7.4-11.0) 11/06/20 04:00 Neut % (Auto) 74.5 % (42.0-75.0) 11/06/20 04:00 Lymph % (Auto) 17.8 % (21.0-51.0) L 11/06/20 04:00 [place] % (Auto) 6.6 % (0.0-13.0) 11/06/20 04:00 Eos % (Auto) 0.8 % (0.9-2.9) L 11/06/20 04:00 Baso % (Auto) 0.3 % (0.2-1.0) 11/06/20 04:00 Neut # (Auto) 7.5 x10^3/uL (2.2-4.8) H 11/06/20 04:00 Lymph # (Auto) 1.8 X10^3/uL (1.3-2.9) 11/06/20 04:00 [place] # (Auto) 0.7 x10^3/uL (0.3-0.8) 11/06/20 04:00 Eos # (Auto) 0.1 x10^3/uL (0.0-0.2) 11/06/20 04:00 Baso # (Auto) 0.0 X10^3/uL (0.0-0.1) 11/06/20 04:00 Absolute Nucleated RBC 0.0 /100WBC 11/06/20 04:00 Sodium 135 mmol/L (136-145) L 11/06/20 04:00 Corrected Sodium 137 mmol/L (136-145) 11/06/20 04:00 Potassium 5.2 mmol/L (3.5-5.1) H 11/06/20 04:00 Chloride 101 mmol/L (98-107) 11/06/20 04:00 Carbon Dioxide 27.1 mmol/L (21-32) 11/06/20 04:00 BUN 14 mg/dL (7-18) 11/06/20 04:00 Creatinine 0.98 mg/dL (0.55-1.02) 11/06/20 04:00 Est GFR (MDRD) Af Amer > 60 (>60) 11/06/20 04:00 Est GFR (MDRD) Non-Af 58 (>60) L 11/06/20 04:00 Glucose 177 mg/dL (65-99) H 11/06/20 04:00 POC Glucose (mg/dL) 149 mg/dL (65-99) H 11/05/20 09:06 Calcium 8.5 mg/dL (8.5-10.1) 11/06/20 04:00 Corrected Calcium 9.9 mg/dL (8.5-10.1) 11/06/20 04:00 Total Bilirubin 0.30 mg/dL (0.2-1.0) 11/06/20 04:00 AST 22 Units/L (15-37) 11/06/20 04:00 ALT 13 Units/L (12-78) 11/06/20 04:00 Alkaline Phosphatase 45 Units/L (46-116) L 11/06/20 04:00 Total Protein 6.8 g/dL (6.4-8.2) 11/06/20 04:00 Albumin 2.2 g/dL (3.4-5.0) L 11/06/20 04:00 Globulin 4.6 g/dL (2.5-4.5) H 11/06/20 04:00 Albumin/Globulin Ratio 0.5 Ratio (1.1-2.1) L 11/06/20 04:00 Specimen Type Clean catch urine 11/05/20 10:47 Urine Color Yellow (YELLOW) 11/05/20 10:47 Urine Appearance Slightly hazy (CLEAR) 11/05/20 10:47 Urine pH 5.0 (5.0 - 8.0) 11/05/20 10:47 Ur Specific [place] 1.020 (1.000-1.030) 11/05/20 10:47 Urine Protein 3+ (NEGATIVE) 11/05/20 10:47 Urine Glucose (UA) Negative (NEGATIVE) 11/05/20 10:47 Urine Ketones 1+ (NEGATIVE) 11/05/20 10:47 Urine Occult Blood Negative (NEGATIVE) 11/05/20 10:47 Urine Nitrite Negative (NEGATIVE) 11/05/20 10:47 Urine Bilirubin Negative (NEGATIVE) 11/05/20 10:47 Urine Urobilinogen Normal (NORMAL) 11/05/20 10:47 Ur Leukocyte Esterase 1+ (NEGATIVE) 11/05/20 10:47 Urine RBC 0-2 /HPF (0-3) 11/05/20 10:47 Urine WBC 3-5 /HPF (0-5) 11/05/20 10:47 Ur Squamous Epith Cells Few /HPF (NEGATIVE) 11/05/20 10:47 Urine Bacteria Trace /HPF (NEGATIVE) 11/05/20 10:47 Hyaline Casts Few /LPF (NEGATIVE) 11/05/20 10:47 Urine Mucus Many /HPF (NEGATIVE) 11/05/20 10:47 Ur Culture Indicated? No/not indicated 11/05/20 10:47 Tissue Pathology To follow 11/05/20 11:09 - Assessment and Plan 1: post op day 1. 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 multiple incisional hernias . to D/C [place] and NGT . may have water only . OOB with binder . same PO care
[2020-11-06] MEDS ORDERED: NS 100 ML IV + SPIKE MINIBAG* 100 ML IV ONE (14:07)
[2020-11-06] MEDS: ZESTRIL TAB 10 MG PO SCH (14:31)
[2020-11-06] MEDS: NEURONTIN CAP 300 MG PO SCH ×2 (14:32→22:00)
[2020-11-06] MEDS: LOVENOX INJ 40 MG SYR SC SCH (16:37)
[2020-11-07] MEDS: ANCEF VIAL 1 GRAM IVP SCH ×3 (05:25→21:56)
[2020-11-07] MEDS: FLAGYL IV PREMIX 500 MG BAG 500 MG/100 ML BAG IV SCH ×3 (05:25→21:55)
[2020-11-07] MEDS: NEURONTIN CAP 300 MG PO SCH ×3 (05:25→21:55)
[2020-11-07] MEDS: D5 1/2 NS 1000 ML 1,000 ML IV SCH ×3 (06:16→22:04)
--- NOTE | 2020-11-07 07:45 | DR.PROGNOT ---
Hospital Progress Notes - Progress Note for Day of: Progress Note Date: 11/07/20 - Chief Complaint Chief Complaint: comfortable , tolerating liquid diet ..no BM yet . lab work in normal . afebrile . - Past Medical Family Social History Past Med/Fam/Surg Hx: No changes since H&P Allergies: Allergies No Known Drug Allergies Allergy (Verified 04/13/17 07:10) - Review Of Systems ROS: No change since H&P - Vital Signs Vital Signs: Temperature 97.4 F Pulse Rate [Left Radial] 85 Pulse Rate 92 Respiratory Rate 22 Blood Pressure [Right Arm] 145/61 Blood Pressure [Left Arm] 182/70 Blood Pressure 120/64 O2 Sat by Pulse Oximetry 97 - Physical Exam Oriented: Normal Eyes: Normal Ear: Normal Nose: Normal Throat: Normal Respiratory: Normal Cardiovascular: Normal : Normal GI:Auscultation: Normal GI: Tenderness: Diffuse (soft, flat abdomen with moderte tenderness .. BS hypo active ) Musculoskeletal: Normal Psychiatric: Normal Mood Description: Calm Speech Pattern: Clear, Appropriate - Laboratory and Diagnostics Result Diagrams: 11/06/20 04:00 11/06/20 04:00 Labs: Laboratory WBC 10.1 X10^3/uL (3.6-10.0) H 11/06/20 04:00 RBC 3.41 X10^6/uL (3.5-5.4) L 11/06/20 04:00 Hgb 9.8 g/dL (12.0-16.0) L 11/06/20 04:00 Hct 30.6 % (36.0-47.0) L 11/06/20 04:00 MCV 89.6 fL (80.0-100.0) 11/06/20 04:00 MCH 28.8 pg (27.0-34.0) 11/06/20 04:00 MCHC 32.2 g/dL (33.0-35.0) L 11/06/20 04:00 RDW 12.1 % (11.6-16.5) 11/06/20 04:00 Plt Count 410 X10^3/uL (150.0-450.0) 11/06/20 04:00 MPV 8.0 fL (7.4-11.0) 11/06/20 04:00 Neut % (Auto) 74.5 % (42.0-75.0) 11/06/20 04:00 Lymph % (Auto) 17.8 % (21.0-51.0) L 11/06/20 04:00 [place] % (Auto) 6.6 % (0.0-13.0) 11/06/20 04:00 Eos % (Auto) 0.8 % (0.9-2.9) L 11/06/20 04:00 Baso % (Auto) 0.3 % (0.2-1.0) 11/06/20 04:00 Neut # (Auto) 7.5 x10^3/uL (2.2-4.8) H 11/06/20 04:00 Lymph # (Auto) 1.8 X10^3/uL (1.3-2.9) 11/06/20 04:00 [place] # (Auto) 0.7 x10^3/uL (0.3-0.8) 11/06/20 04:00 Eos # (Auto) 0.1 x10^3/uL (0.0-0.2) 11/06/20 04:00 Baso # (Auto) 0.0 X10^3/uL (0.0-0.1) 11/06/20 04:00 Absolute Nucleated RBC 0.0 /100WBC 11/06/20 04:00 Sodium 135 mmol/L (136-145) L 11/06/20 04:00 Corrected Sodium 137 mmol/L (136-145) 11/06/20 04:00 Potassium 5.2 mmol/L (3.5-5.1) H 11/06/20 04:00 Chloride 101 mmol/L (98-107) 11/06/20 04:00 Carbon Dioxide 27.1 mmol/L (21-32) 11/06/20 04:00 BUN 14 mg/dL (7-18) 11/06/20 04:00 Creatinine 0.98 mg/dL (0.55-1.02) 11/06/20 04:00 Est GFR (MDRD) Af Amer > 60 (>60) 11/06/20 04:00 Est GFR (MDRD) Non-Af 58 (>60) L 11/06/20 04:00 Glucose 177 mg/dL (65-99) H 11/06/20 04:00 POC Glucose (mg/dL) 149 mg/dL (65-99) H 11/05/20 09:06 Calcium 8.5 mg/dL (8.5-10.1) 11/06/20 04:00 Corrected Calcium 9.9 mg/dL (8.5-10.1) 11/06/20 04:00 Total Bilirubin 0.30 mg/dL (0.2-1.0) 11/06/20 04:00 AST 22 Units/L (15-37) 11/06/20 04:00 ALT 13 Units/L (12-78) 11/06/20 04:00 Alkaline Phosphatase 45 Units/L (46-116) L 11/06/20 04:00 Total Protein 6.8 g/dL (6.4-8.2) 11/06/20 04:00 Albumin 2.2 g/dL (3.4-5.0) L 11/06/20 04:00 Globulin 4.6 g/dL (2.5-4.5) H 11/06/20 04:00 Albumin/Globulin Ratio 0.5 Ratio (1.1-2.1) L 11/06/20 04:00 Specimen Type Clean catch urine 11/05/20 10:47 Urine Color Yellow (YELLOW) 11/05/20 10:47 Urine Appearance Slightly hazy (CLEAR) 11/05/20 10:47 Urine pH 5.0 (5.0 - 8.0) 11/05/20 10:47 Ur Specific [place] 1.020 (1.000-1.030) 11/05/20 10:47 Urine Protein 3+ (NEGATIVE) 11/05/20 10:47 Urine Glucose (UA) Negative (NEGATIVE) 11/05/20 10:47 Urine Ketones 1+ (NEGATIVE) 11/05/20 10:47 Urine Occult Blood Negative (NEGATIVE) 11/05/20 10:47 Urine Nitrite Negative (NEGATIVE) 11/05/20 10:47 Urine Bilirubin Negative (NEGATIVE) 11/05/20 10:47 Urine Urobilinogen Normal (NORMAL) 11/05/20 10:47 Ur Leukocyte Esterase 1+ (NEGATIVE) 11/05/20 10:47 Urine RBC 0-2 /HPF (0-3) 11/05/20 10:47 Urine WBC 3-5 /HPF (0-5) 11/05/20 10:47 Ur Squamous Epith Cells Few /HPF (NEGATIVE) 11/05/20 10:47 Urine Bacteria Trace /HPF (NEGATIVE) 11/05/20 10:47 Hyaline Casts Few /LPF (NEGATIVE) 11/05/20 10:47 Urine Mucus Many /HPF (NEGATIVE) 11/05/20 10:47 Ur Culture Indicated? No/not indicated 11/05/20 10:47 Tissue Pathology To follow 11/05/20 11:09 - Assessment and Plan 1: post op day 2. 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 multiple incisional hernias . to start on full liquid . to D/C [place] drains ..
[2020-11-07] MEDS: PROTONIX INJ 40 MG VIAL IVP SCH (09:01)
[2020-11-07] MEDS: LOVENOX INJ 40 MG SYR SC SCH (09:01)
[2020-11-07] MEDS: ZESTRIL TAB 10 MG PO SCH (09:01)
[2020-11-07] MEDS ORDERED: NS 100 ML IV 100 ML IV ONE (14:29)
[2020-11-07 14:31] LABS: BASOPHILS # (AUTO) 0.1 X10^3/uL (0.0-0.1); BASOPHILS % (AUTO) 0.7 % (0.2-1.0); EOSINOPHILS # (AUTO) 0.4 x10^3/uL (0.0-0.2); EOSINOPHILS % (AUTO) 3.9 % (0.9-2.9); HEMATOCRIT 26.4 % (36.0-47.0); HEMOGLOBIN 8.6 g/dL (12.0-16.0); LYMPHOCYTES # (AUTO) 1.6 X10^3/uL (1.3-2.9); LYMPHOCYTES % (AUTO) 14.4 % (21.0-51.0); MEAN CORPUSCULAR HGB CONC 32.4 g/dL (33.0-35.0); MEAN CORPUSCULAR VOLUME 89.4 fL (80.0-100.0); MEAN PLATELET VOLUME 7.8 fL (7.4-11.0); MONOCYTES # (AUTO) 0.6 x10^3/uL (0.3-0.8); MONOCYTES % (AUTO) 5.3 % (0.0-13.0); NEUTROPHILS # (AUTO) 8.3 x10^3/uL (2.2-4.8); NEUTROPHILS % (AUTO) 75.7 % (42.0-75.0); PLATELET COUNT 337 X10^3/uL (150.0-450.0); RED BLOOD COUNT 2.96 X10^6/uL (3.5-5.4); RED CELL DISTRIBUTION WIDTH 12.4 % (11.6-16.5); WHITE BLOOD COUNT 10.9 X10^3/uL (3.6-10.0)
[2020-11-07 14:40] LABS: ALANINE AMINOTRANSFERASE 10 Units/L (12-78); ALKALINE PHOSPHATASE 45 Units/L (46-116); ASPARTATE AMINO TRANSFERASE 23 Units/L (15-37); BLOOD UREA NITROGEN 7 mg/dL (7-18); CALCIUM 8.4 mg/dL (8.5-10.1); CARBON DIOXIDE 26.3 mmol/L (21-32); CHLORIDE 102 mmol/L (98-107); COR NA(FOR HYPERGLY) 138 mmol/L (136-145); CREATININE 0.89 mg/dL (0.55-1.02); SODIUM 136 mmol/L (136-145); TOTAL PROTEIN 6.6 g/dL (6.4-8.2); eGFR NON BLACK RACES > 60 (>60)
[2020-11-08] MEDS: FLAGYL IV PREMIX 500 MG BAG 500 MG/100 ML BAG IV SCH ×3 (05:38→21:14)
[2020-11-08] MEDS: NEURONTIN CAP 300 MG PO SCH ×3 (05:39→21:14)
[2020-11-08] MEDS: ANCEF VIAL 1 GRAM IVP SCH ×2 (05:39→15:00)
[2020-11-08] MEDS: D5 1/2 NS 1000 ML 1,000 ML IV SCH ×2 (05:46→16:47)
[2020-11-08] MEDS: ZESTRIL TAB 10 MG PO SCH (08:45)
[2020-11-08] MEDS: LOVENOX INJ 40 MG SYR SC SCH (08:46)
[2020-11-08] MEDS: PROTONIX INJ 40 MG VIAL IVP SCH (08:49)
[2020-11-08] MEDS ORDERED: NS 100 ML IV 100 ML with VENOFER 400 MG IV NR ×2 (10:01)
[2020-11-08] MEDS ORDERED: ZESTRIL TAB 10 MG PO ONE (10:03)
--- NOTE | 2020-11-08 17:37 | DR.PROGNOT ---
HOSPITAL PROGRESS NOTE Progress Note for Day of: Progress Note Date: 11/08/20 Chief Complaint Chief Complaint: comfortable , tolerating soft ..no BM yet . No flatus as yet drains have been removed and she has been ambulating in the room. afebrile . History of Present Illness History of Present Illness: POD #2 after resection of cecal tumor, repair of multiple abdominal wall hernias and biopsy of liver mass, probable metastatic tumor. Past Medical Family Social History Past Med/Fam/Surg Hx: No changes since H&P Allergies: Allergies No Known Drug Allergies Allergy (Verified 04/13/17 07:10) Review Of Systems ROS: No change since H&P Vital Signs Vital Signs: Temperature 98.2 F Pulse Rate [Left Radial] 76 Pulse Rate 92 Respiratory Rate 21 Blood Pressure [Right Arm] 162/74 Blood Pressure [Left Arm] 182/70 Blood Pressure 120/64 O2 Sat by Pulse Oximetry 96 Physical Exam Oriented: Normal Eyes: Normal Ear: Normal Nose: Normal Throat: Normal Respiratory: Normal Cardiovascular: Normal : Normal GI:Auscultation: Normal and Other ( Incision intact , drains have been removed) GI: Tenderness: Diffuse (soft, flat abdomen with moderte tenderness .. BS hypo active ) Musculoskeletal: Normal Psychiatric: Normal Mood Description: Calm Speech Pattern: Clear and Appropriate Laboratory and Diagnostics Result Diagrams: 11/07/20 14:19 11/07/20 14:19 Labs: Laboratory WBC 10.9 X10^3/uL (3.6-10.0) H 11/07/20 14:19 RBC 2.96 X10^6/uL (3.5-5.4) L 11/07/20 14:19 Hgb 8.6 g/dL (12.0-16.0) L 11/07/20 14:19 Hct 26.4 % (36.0-47.0) L 11/07/20 14:19 MCV 89.4 fL (80.0-100.0) 11/07/20 14:19 MCH 29.0 pg (27.0-34.0) 11/07/20 14:19 MCHC 32.4 g/dL (33.0-35.0) L 11/07/20 14:19 RDW 12.4 % (11.6-16.5) 11/07/20 14:19 Plt Count 337 X10^3/uL (150.0-450.0) 11/07/20 14:19 MPV 7.8 fL (7.4-11.0) 11/07/20 14:19 Neut % (Auto) 75.7 % (42.0-75.0) H 11/07/20 14:19 Lymph % (Auto) 14.4 % (21.0-51.0) L 11/07/20 14:19 [place] % (Auto) 5.3 % (0.0-13.0) 11/07/20 14:19 Eos % (Auto) 3.9 % (0.9-2.9) H 11/07/20 14:19 Baso % (Auto) 0.7 % (0.2-1.0) 11/07/20 14:19 Neut # (Auto) 8.3 x10^3/uL (2.2-4.8) H 11/07/20 14:19 Lymph # (Auto) 1.6 X10^3/uL (1.3-2.9) 11/07/20 14:19 [place] # (Auto) 0.6 x10^3/uL (0.3-0.8) 11/07/20 14:19 Eos # (Auto) 0.4 x10^3/uL (0.0-0.2) H 11/07/20 14:19 Baso # (Auto) 0.1 X10^3/uL (0.0-0.1) 11/07/20 14:19 Absolute Nucleated RBC 0.1 /100WBC 11/07/20 14:19 Sodium 136 mmol/L (136-145) 11/07/20 14:19 Corrected Sodium 138 mmol/L (136-145) 11/07/20 14:19 Potassium 3.7 mmol/L (3.5-5.1) 11/07/20 14:19 Chloride 102 mmol/L (98-107) 11/07/20 14:19 Carbon Dioxide 26.3 mmol/L (21-32) 11/07/20 14:19 BUN 7 mg/dL (7-18) 11/07/20 14:19 Creatinine 0.89 mg/dL (0.55-1.02) 11/07/20 14:19 Est GFR (MDRD) Af Amer > 60 (>60) 11/07/20 14:19 Est GFR (MDRD) Non-Af > 60 (>60) 11/07/20 14:19 Glucose 169 mg/dL (65-99) H 11/07/20 14:19 POC Glucose (mg/dL) 149 mg/dL (65-99) H 11/05/20 09:06 Calcium 8.4 mg/dL (8.5-10.1) L 11/07/20 14:19 Corrected Calcium 10.0 mg/dL (8.5-10.1) 11/07/20 14:19 Total Bilirubin 0.40 mg/dL (0.2-1.0) 11/07/20 14:19 AST 23 Units/L (15-37) 11/07/20 14:19 ALT 10 Units/L (12-78) L 11/07/20 14:19 Alkaline Phosphatase 45 Units/L (46-116) L 11/07/20 14:19 Total Protein 6.6 g/dL (6.4-8.2) 11/07/20 14:19 Albumin 2.0 g/dL (3.4-5.0) L 11/07/20 14:19 Globulin 4.6 g/dL (2.5-4.5) H 11/07/20 14:19 Albumin/Globulin Ratio 0.4 Ratio (1.1-2.1) L 11/07/20 14:19 Specimen Type Clean catch urine 11/05/20 10:47 Urine Color Yellow (YELLOW) 11/05/20 10:47 Urine Appearance Slightly hazy (CLEAR) 11/05/20 10:47 Urine pH 5.0 (5.0 - 8.0) 11/05/20 10:47 Ur Specific [place] 1.020 (1.000-1.030) 11/05/20 10:47 Urine Protein 3+ (NEGATIVE) 11/05/20 10:47 Urine Glucose (UA) Negative (NEGATIVE) 11/05/20 10:47 Urine Ketones 1+ (NEGATIVE) 11/05/20 10:47 Urine Occult Blood Negative (NEGATIVE) 11/05/20 10:47 Urine Nitrite Negative (NEGATIVE) 11/05/20 10:47 Urine Bilirubin Negative (NEGATIVE) 11/05/20 10:47 Urine Urobilinogen Normal (NORMAL) 11/05/20 10:47 Ur Leukocyte Esterase 1+ (NEGATIVE) 11/05/20 10:47 Urine RBC 0-2 /HPF (0-3) 11/05/20 10:47 Urine WBC 3-5 /HPF (0-5) 11/05/20 10:47 Ur Squamous Epith Cells Few /HPF (NEGATIVE) 11/05/20 10:47 Urine Bacteria Trace /HPF (NEGATIVE) 11/05/20 10:47 Hyaline Casts Few /LPF (NEGATIVE) 11/05/20 10:47 Urine Mucus Many /HPF (NEGATIVE) 11/05/20 10:47 Ur Culture Indicated? 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 multiple incisional hernias . to start on full liquid . to D/C [place] drains .. Will heparin lock IVFs and encourage ambulation.
[2020-11-09] MEDS: FLAGYL IV PREMIX 500 MG BAG 500 MG/100 ML BAG IV SCH ×2 (05:23→14:45)
[2020-11-09] MEDS: NEURONTIN CAP 300 MG PO SCH ×3 (05:23→21:14)
[2020-11-09 05:58] LABS: BASOPHILS % (AUTO) 0.5 % (0.2-1.0); EOSINOPHILS # (AUTO) 0.4 x10^3/uL (0.0-0.2); EOSINOPHILS % (AUTO) 5.2 % (0.9-2.9); HEMATOCRIT 23.6 % (36.0-47.0); HEMOGLOBIN 7.8 g/dL (12.0-16.0); LYMPHOCYTES # (AUTO) 1.7 X10^3/uL (1.3-2.9); LYMPHOCYTES % (AUTO) 21.2 % (21.0-51.0); MEAN CORPUSCULAR HEMOGLOBIN 29.1 pg (27.0-34.0); MEAN CORPUSCULAR HGB CONC 32.8 g/dL (33.0-35.0); MEAN CORPUSCULAR VOLUME 88.8 fL (80.0-100.0); MEAN PLATELET VOLUME 7.7 fL (7.4-11.0); MONOCYTES # (AUTO) 0.7 x10^3/uL (0.3-0.8); MONOCYTES % (AUTO) 9.3 % (0.0-13.0); NEUTROPHILS # (AUTO) 5.1 x10^3/uL (2.2-4.8); NEUTROPHILS % (AUTO) 63.8 % (42.0-75.0); PLATELET COUNT 325 X10^3/uL (150.0-450.0); RED BLOOD COUNT 2.66 X10^6/uL (3.5-5.4); RED CELL DISTRIBUTION WIDTH 12.4 % (11.6-16.5)
[2020-11-09 06:11] LABS: ALANINE AMINOTRANSFERASE 11 Units/L (12-78); ALBUMIN 1.8 g/dL (3.4-5.0); ALKALINE PHOSPHATASE 39 Units/L (46-116); ASPARTATE AMINO TRANSFERASE 17 Units/L (15-37); BLOOD UREA NITROGEN 6 mg/dL (7-18); CALCIUM 8.2 mg/dL (8.5-10.1); CARBON DIOXIDE 28.9 mmol/L (21-32); CHLORIDE 104 mmol/L (98-107); COR NA(FOR HYPERGLY) 139 mmol/L (136-145); SODIUM 139 mmol/L (136-145); eGFR NON BLACK RACES > 60 (>60)
[2020-11-09] MEDS: LOVENOX INJ 40 MG SYR SC SCH (08:43)
[2020-11-09] MEDS: PROTONIX INJ 40 MG VIAL IVP SCH (10:00)
[2020-11-09] MEDS: ZESTRIL TAB 10 MG PO SCH (10:00)
--- NOTE | 2020-11-09 22:49 | PCM.PROG ---
Progress Note Progress Note for Day of Date of Exam: 11/09/20 Subjective Subjective: POD # 3 after right colon resection for colon cancer with biopsy suspicious right liver mass and repair incarcerated ventral hernia. Doing well. Tolerating regular diet had had BM Past Medical Family Social History Past Med/Fam/Surg Hx: No changes since H&P Allergies: Allergies No Known Drug Allergies Allergy (Verified 04/13/17 07:10) Review of Systems ROS: No change since H&P Vital Signs and I&O's Vital Signs: Temperature 98.3 F Pulse Rate [Left Radial] 83 Pulse Rate 97 Respiratory Rate 18 Blood Pressure [Right Arm] 155/69 Blood Pressure [Left Arm] 182/70 Blood Pressure 168/70 O2 Sat by Pulse Oximetry 98 Intake and Output: Intake & Output 11/06/20 11/07/20 11/08/20 11/09/20 23:59 23:59 23:59 23:59 Intake Total 3460 / 3460 4033 / 4033 840 / 840 660 / 660 Output Total 1105 / 1105 15 / 15 Balance 2355 / 2355 4018 / 4018 840 / 840 660 / 660 Physical Exam Oriented: Normal Eyes: Normal Ear: Normal Nose: Normal Throat: Normal Respiratory: Normal Cardiovascular: Normal : Normal Auscultation: Bowel Sounds: Normal and Other ( Incision intact , drains have been removed) Tenderness: Diffuse (soft, flat abdomen with moderte tenderness .. BS hypo active ) Skin: Wound ( Abdomen sort and benign. Drain sites clean with no continued drainage and midline dressing intact ) Musculoskeletal: Normal Psychiatric: Normal Mood Description: Calm Speech Pattern: Clear and Appropriate Laboratory and Diagnostics Result Diagrams: 11/09/20 05:25 11/09/20 05:25 Labs: Laboratory WBC 8.0 X10^3/uL (3.6-10.0) 11/09/20 05:25 RBC 2.66 X10^6/uL (3.5-5.4) L 11/09/20 05:25 Hgb 7.8 g/dL (12.0-16.0) L 11/09/20 05:25 Hct 23.6 % (36.0-47.0) L 11/09/20 05:25 MCV 88.8 fL (80.0-100.0) 11/09/20 05:25 MCH 29.1 pg (27.0-34.0) 11/09/20 05:25 MCHC 32.8 g/dL (33.0-35.0) L 11/09/20 05:25 RDW 12.4 % (11.6-16.5) 11/09/20 05:25 Plt Count 325 X10^3/uL (150.0-450.0) 11/09/20 05:25 MPV 7.7 fL (7.4-11.0) 11/09/20 05:25 Neut % (Auto) 63.8 % (42.0-75.0) 11/09/20 05:25 Lymph % (Auto) 21.2 % (21.0-51.0) 11/09/20 05:25 [place] % (Auto) 9.3 % (0.0-13.0) 11/09/20 05:25 Eos % (Auto) 5.2 % (0.9-2.9) H 11/09/20 05:25 Baso % (Auto) 0.5 % (0.2-1.0) 11/09/20 05:25 Neut # (Auto) 5.1 x10^3/uL (2.2-4.8) H 11/09/20 05:25 Lymph # (Auto) 1.7 X10^3/uL (1.3-2.9) 11/09/20 05:25 [place] # (Auto) 0.7 x10^3/uL (0.3-0.8) 11/09/20 05:25 Eos # (Auto) 0.4 x10^3/uL (0.0-0.2) H 11/09/20 05:25 Baso # (Auto) 0.0 X10^3/uL (0.0-0.1) 11/09/20 05:25 Absolute Nucleated RBC 0.0 /100WBC 11/09/20 05:25 Sodium 139 mmol/L (136-145) 11/09/20 05:25 Corrected Sodium 139 mmol/L (136-145) 11/09/20 05:25 Potassium 4.1 mmol/L (3.5-5.1) 11/09/20 05:25 Chloride 104 mmol/L (98-107) 11/09/20 05:25 Carbon Dioxide 28.9 mmol/L (21-32) 11/09/20 05:25 BUN 6 mg/dL (7-18) L 11/09/20 05:25 Creatinine 0.70 mg/dL (0.55-1.02) 11/09/20 05:25 Est GFR (MDRD) Af Amer > 60 (>60) 11/09/20 05:25 Est GFR (MDRD) Non-Af > 60 (>60) 11/09/20 05:25 Glucose 117 mg/dL (65-99) H 11/09/20 05:25 POC Glucose (mg/dL) 149 mg/dL (65-99) H 11/05/20 09:06 Calcium 8.2 mg/dL (8.5-10.1) L 11/09/20 05:25 Corrected Calcium 10.0 mg/dL (8.5-10.1) 11/09/20 05:25 Total Bilirubin 0.20 mg/dL (0.2-1.0) 11/09/20 05:25 AST 17 Units/L (15-37) 11/09/20 05:25 ALT 11 Units/L (12-78) L 11/09/20 05:25 Alkaline Phosphatase 39 Units/L (46-116) L 11/09/20 05:25 Total Protein 6.0 g/dL (6.4-8.2) L 11/09/20 05:25 Albumin 1.8 g/dL (3.4-5.0) L 11/09/20 05:25 Globulin 4.2 g/dL (2.5-4.5) 11/09/20 05:25 Albumin/Globulin Ratio 0.4 Ratio (1.1-2.1) L 11/09/20 05:25 Specimen Type Clean catch urine 11/05/20 10:47 Urine Color Yellow (YELLOW) 11/05/20 10:47 Urine Appearance Slightly hazy (CLEAR) 11/05/20 10:47 Urine pH 5.0 (5.0 - 8.0) 11/05/20 10:47 Ur Specific [place] 1.020 (1.000-1.030) 11/05/20 10:47 Urine Protein 3+ (NEGATIVE) 11/05/20 10:47 Urine Glucose (UA) Negative (NEGATIVE) 11/05/20 10:47 Urine Ketones 1+ (NEGATIVE) 11/05/20 10:47 Urine Occult Blood Negative (NEGATIVE) 11/05/20 10:47 Urine Nitrite Negative (NEGATIVE) 11/05/20 10:47 Urine Bilirubin Negative (NEGATIVE) 11/05/20 10:47 Urine Urobilinogen Normal (NORMAL) 11/05/20 10:47 Ur Leukocyte Esterase 1+ (NEGATIVE) 11/05/20 10:47 Urine RBC 0-2 /HPF (0-3) 11/05/20 10:47 Urine WBC 3-5 /HPF (0-5) 11/05/20 10:47 Ur Squamous Epith Cells Few /HPF (NEGATIVE) 11/05/20 10:47 Urine Bacteria Trace /HPF (NEGATIVE) 11/05/20 10:47 Hyaline Casts Few /LPF (NEGATIVE) 11/05/20 10:47 Urine Mucus Many /HPF (NEGATIVE) 11/05/20 10:47 Ur Culture Indicated? No/not indicated 11/05/20 10:47 Tissue Pathology To follow 11/05/20 11:09 Plan (1) Colonic mass: Status: Acute Plan: Hgb 7.8. Willl recheck in AM. Will probably D/C in AM. Final pathology pending
[2020-11-10] MEDS: NEURONTIN CAP 300 MG PO SCH (05:12)
[2020-11-10 06:22] LABS: BASOPHILS % (AUTO) 0.4 % (0.2-1.0); EOSINOPHILS # (AUTO) 0.4 x10^3/uL (0.0-0.2); EOSINOPHILS % (AUTO) 4.7 % (0.9-2.9); HEMATOCRIT 23.7 % (36.0-47.0); HEMOGLOBIN 7.8 g/dL (12.0-16.0); LYMPHOCYTES # (AUTO) 1.3 X10^3/uL (1.3-2.9); MEAN CORPUSCULAR VOLUME 87.9 fL (80.0-100.0); MEAN PLATELET VOLUME 7.6 fL (7.4-11.0); MONOCYTES # (AUTO) 0.8 x10^3/uL (0.3-0.8); MONOCYTES % (AUTO) 10.5 % (0.0-13.0); NEUTROPHILS # (AUTO) 5.1 x10^3/uL (2.2-4.8); NEUTROPHILS % (AUTO) 67.4 % (42.0-75.0); PLATELET COUNT 385 X10^3/uL (150.0-450.0); RED CELL DISTRIBUTION WIDTH 12.4 % (11.6-16.5); WHITE BLOOD COUNT 7.6 X10^3/uL (3.6-10.0)
[2020-11-10 06:30] LABS: ALANINE AMINOTRANSFERASE 10 Units/L (12-78); ALBUMIN 1.9 g/dL (3.4-5.0); ALKALINE PHOSPHATASE 43 Units/L (46-116); ASPARTATE AMINO TRANSFERASE 15 Units/L (15-37); BLOOD UREA NITROGEN 6 mg/dL (7-18); CALCIUM 8.2 mg/dL (8.5-10.1); CARBON DIOXIDE 29.6 mmol/L (21-32); CHLORIDE 102 mmol/L (98-107); COR CA(FOR HYPOALB) 9.9 mg/dL (8.5-10.1); COR NA(FOR HYPERGLY) 139 mmol/L (136-145); CREATININE 0.63 mg/dL (0.55-1.02); SODIUM 139 mmol/L (136-145); TOTAL PROTEIN 6.3 g/dL (6.4-8.2); eGFR NON BLACK RACES > 60 (>60)
[2020-11-10] MEDS: ZESTRIL TAB 10 MG PO SCH (09:00)
[2020-11-10] MEDS: LOVENOX INJ 40 MG SYR SC SCH (09:01)
[2020-11-10] MEDS: PHENERGAN INJ 25 MG IM PRN (09:02)
[2020-11-10 12:19] VITALS: BP 155/71
== END 2020-11-10 13:30 | disposition home or self-care (01) | DRG 330 ==
LOC: MED/SURG 08:34
PROVIDERS: ADMIT Surgery; ATTEND Surgery
PROC: HEMICOL (2020-11-05 10:00)
DX: R11.2 Nausea with vomiting, unspecified; C78.7 Secondary malignant neoplasm of liver and intrahepatic bile duct; K43.0 Incisional hernia with obstruction, without gangrene; C18.2 Malignant neoplasm of ascending colon; K63.89 Other specified diseases of intestine; R10.84 Generalized abdominal pain; K42.0 Umbilical hernia with obstruction, without gangrene